=== PATIENT | female | born 1950 | race African-American/Black ===

== ENCOUNTER 2018-02-12 22:35 | Emergency (ER) | payer MEDICARE, OTHER ==
[~2018-02-12 22:35] MED LIST: ISOVUE-370 76%-LOCM 1 ML ONE
[2018-02-12 23:06] LABS: Bilirubin Negative (Negative); Blood, Urine Small (Negative); Clarity CLEAR (Clear); Glucose, Urine (Dipstick) 500 mg/dL (Negative); Leukocyte Negative (Negative); Nitrite Negative (Negative); Protein, Urine (Dipstick) 100 mg/dL (Neg-Trace); Specific Gravity, Urine 1.019 (1.002-1.036); pH, Urine 6.5 (5.0-9.0)
[2018-02-12 23:08] LABS: #Basophils 0.1 thou/uL (0.0-0.2); #Eosinphils 0.2 thou/uL (0.0-0.7); #Lymphocytes 4.4 thou/uL (1.20-3.40); #Monocytes 0.8 thou/uL (0.11-0.59); %Basophils 0.7 % (0.0-1.0); %Eosinophils 1.9 % (0.0-10.0); %Lymphocytes 38.1 % (21.0-51.0); %Monocytes 6.8 % (0.0-10.0); %Neutrophils 52.5 % (42.0-75.0); Hemoglobin 13.1 g/dL (12.0-16.0); Mean Corpuscular HGB CONC 33.6 g/dL (32.0-36.0); Mean Corpuscular Hemoglobin 28.2 pg (27.0-31.0); Mean Corpuscular Volume 83.9 fL (78.0-98.0); Mean Platelet Volume 7.9 fL (7.4-10.4); Platelet Count 255 thou/uL (130-400); RBC Distribution Width 12.8 % (11.5-14.5); Red Blood Cell (RBC) Count 4.64 mill/uL (4.20-5.40); White Blood Cell (WBC) Count 11.4 thou/uL (4.8-10.8)
[2018-02-12 23:08] LABS: Bacteria/HPF None Seen HPF (None Seen); Hyaline Casts/LPF 0-3 HYALINE CAST LPF (0-3 Hyaline); Pathc Cast-AUWi Flag 0.29 (0-2.49); Squamous Epithelial 0-3 HPF (0-3); WBC/HPF 0-3 HPF (0-3)
[2018-02-12 23:28] LABS: ALT (SGPT) 14 U/L (8-55); AST (SGOT) 12 U/L (5-34); Alkaline Phosphatase 110 U/L (40-150); Anion Gap 12 mmol/L (10-20); BUN (Urea Nitrogen) 14 mg/dL (9.8-20.1); Bilirubin, Total 0.3 mg/dL (0.2-1.2); Calc. Creatinine Clearance 0 mL/min (70-130); Calcium 9.2 mg/dL (7.8-10.44); Carbon Dioxide 26 mmol/L (23-31); Chloride 104 mmol/L (98-107); Estimated GFR-MDRD 83; Globulin 3.2 g/dL (2.4-3.5); Glucose 263 mg/dL (80-115); Lipase 33 U/L (8-78); Potassium 4.1 mmol/L (3.5-5.1); Protein, Total 7.2 g/dL (6.0-8.3); Sodium 138 mmol/L (136-145)
[2018-02-13 00:36] LABS: CKMB 2.2 ng/mL (0-6.6); Troponin I Less than 0.010 ng/mL (< 0.028)
[2018-02-13] MEDS ORDERED: Furosemide 40 MG/4 ML VIAL ONE (02:27)
--- NOTE | 2018-02-13 08:50 | CT ---
PRELIMINARY REPORT/[facility]/EMERGENTY AFTER-HOURS PROCEDURE CT Abdomen and Pelvis With Intravenous Contrast CLINICAL HISTORY: 67 years old, female; Pain; Abdominal pain; Generalized; Prior surgery; Surgery type: Er 2; Bloating for 2-3 weeks. HX of mass on stomach from previous hernia SX. Denies nausea. Belly swelling for 2 wee ks. No nausea. Red blood in bowels yesterday. Removed 7 polyups during colonoscopy serveral weeks ago. Feet swollen 2 weeks. Some SOB. Have not be taken meds because forget. Gallbladder removed . Hernia repair. TECHNIQUE: Axial computed tomography images of the abdomen and pelvis with intravenous contrast. Coronal reformatted images were created and reviewed. COMPARISON: No relevant prior studies available. FINDINGS: Lower thorax: No acute findings. ABDOMEN: Liver: Hepatic steatosis. Gallbladder and bile ducts: Prior cholecystectomy. Pancreas: Normal. No ductal dilation. Spleen: Normal. No splenomegaly. Adrenals: Normal. No mass. Kidneys and ureters: Left renal vascular calcifications. There is dilatation of the distal right uret er with obstructive urolithiasis or associated inflammation, potentially congenital. Kidneys otherwis e unremarkable. No obstructive uropathy. No perinephric inflammation. Stomach and bowel: No bowel wall thickening or intestinal obstruction. Appendix: Normal appendix. PELVIS: Bladder: Unremarkable as visualized. Reproductive: Unremarkable as visualized. ABDOMEN and PELVIS: Intraperitoneal space: Normal. No free air. No significant fluid collection. Bones/joints: No acute fracture. No dislocation. Soft tissues: Small supraumbilical fat containing abdominal wall hernia. Vasculature: Normal. No abdominal aortic aneurysm. Lymph nodes: Normal. No enlarged lymph nodes. IMPRESSION: No acute findings. Thank you for allowing us to participate in the care of your patient. Dictated and Authenticated by: Charly Butler MD 02/13/2018 2:11 AM Central Time ([place] & [place]) FINAL REPORT EMERGENT AFTER HOURS CT ABDOMEN AND PELVIS WITH CONTRAST: FINDINGS/IMPRESSION: I agree with the findings and impression given in the preliminary report per [facility] physician. 1. No evidence of acute intraabdominal/pelvic abnormality. 2. Right renal cyst.
== END 2018-02-13 03:20 | disposition home or self-care (01) ==
LOC: ERS 22:35
DX: R14.0 Abdominal distension (gaseous) (principal); I10 Essential (primary) hypertension; R60.0 Localized edema; E11.40 Type 2 diabetes mellitus with diabetic neuropathy, unspecified; F41.9 Anxiety disorder, unspecified; F32.9 Major depressive disorder, single episode, unspecified; Z87.891 Personal history of nicotine dependence; Z79.4 Long term (current) use of insulin; Z79.899 Other long term (current) drug therapy
CPT/HCPCS: 36415; 74177; 80053; 81003; 81015; 82553; 83690; 83880; 84484; 85025; 93005; 96374; J1940

== ENCOUNTER 2018-10-02 01:53 | Emergency (ER) | payer MEDICARE, OTHER ==
[2018-10-02 02:49] LABS: #Basophils 0.1 thou/uL (0.0-0.2); #Eosinphils 0.2 thou/uL (0.0-0.7); #Lymphocytes 3.4 thou/uL (1.20-3.40); #Monocytes 0.9 thou/uL (0.11-0.59); #Neutrophils 6.2 thou/uL (1.40-6.50); %Basophils 0.9 % (0.0-1.0); %Eosinophils 1.8 % (0.0-10.0); %Lymphocytes 31.2 % (21.0-51.0); %Monocytes 8.5 % (0.0-10.0); %Neutrophils 57.6 % (42.0-75.0); Hemoglobin 13.5 g/dL (12.0-16.0); Mean Corpuscular HGB CONC 31.8 g/dL (32.0-36.0); Mean Corpuscular Hemoglobin 27.4 pg (27.0-31.0); Mean Corpuscular Volume 86.2 fL (78.0-98.0); Mean Platelet Volume 8.9 fL (7.4-10.4); Platelet Count 216 thou/uL (130-400); RBC Distribution Width 11.9 % (11.5-14.5); Red Blood Cell (RBC) Count 4.93 mill/uL (4.20-5.40); White Blood Cell (WBC) Count 10.8 thou/uL (4.8-10.8)
[2018-10-02 03:21] LABS: Albumin 3.9 g/dL (3.4-4.8)
[2018-10-02 03:22] LABS: Chloride 101 mmol/L (98-107); Potassium 4.1 mmol/L (3.5-5.1); Sodium 138 mmol/L (136-145)
[2018-10-02 03:23] LABS: Calcium 9.7 mg/dL (7.8-10.44)
[2018-10-02 03:24] LABS: Globulin 2.7 g/dL (2.4-3.5); Glucose 362 mg/dL (80-115); Protein, Total 6.6 g/dL (6.0-8.3)
[2018-10-02 03:25] LABS: Anion Gap 12 mmol/L (10-20); Bilirubin, Total 0.3 mg/dL (0.2-1.2); Carbon Dioxide 29 mmol/L (23-31)
[2018-10-02 03:26] LABS: Alkaline Phosphatase 124 U/L (40-150)
[2018-10-02 03:27] LABS: Calc. Creatinine Clearance 0 mL/min (70-130); Estimated GFR-MDRD 69
[2018-10-02 03:28] LABS: BUN (Urea Nitrogen) 14 mg/dL (9.8-20.1)
[2018-10-02 03:29] LABS: AST (SGOT) 12 U/L (5-34)
[2018-10-02 03:30] LABS: ALT (SGPT) 10 U/L (8-55)
[2018-10-02] MEDS ORDERED: Ketorolac Tromethamine 30 MG/ML VIAL ONE (03:39)
--- NOTE | 2018-10-02 08:11 | RAD ---
RADIOGRAPH CHEST 2 VIEWS: HISTORY: A 68-year-old female with chest pain. FINDINGS: The thoracic aorta is tortuous and ectatic. There is no evidence of air space density, pneumothorax, or pulmonary edema. There is no cardiomegaly or pleural effusion. IMPRESSION: 1) No acute cardiopulmonary findings. 2) Ectasia of thoracic aorta. ying [] POS: DAINA
== END 2018-10-02 04:07 | disposition home or self-care (01) ==
LOC: ERS 01:53
DX: S39.012A Strain of muscle, fascia and tendon of lower back, initial encounter (principal); R07.9 Chest pain, unspecified; I10 Essential (primary) hypertension; E11.40 Type 2 diabetes mellitus with diabetic neuropathy, unspecified; F41.9 Anxiety disorder, unspecified; F32.9 Major depressive disorder, single episode, unspecified; Z86.73 Personal history of transient ischemic attack (TIA), and cerebral infarction without residual deficits; Z87.891 Personal history of nicotine dependence; X58.XXXA Exposure to other specified factors, initial encounter
CPT/HCPCS: 36415; 71046; 80053; 84484; 85025; 93005; 96372; J1885

== ENCOUNTER 2018-10-24 09:21 | Emergency (ER) | payer MEDICARE, OTHER ==
--- NOTE | 2018-10-24 10:08 | CT ---
FCT brain noncontrast: 10/24/2018 HISTORY: 68 year old female with dizziness and posttraumatic headache after fall. FINDINGS: There is no evidence of acute intra-axial or extra-axial hemorrhage. No mass effect, midline shift, o r extra-axial fluid collection. No evidence of obstructive hydrocephalus. Calvarium is intact. High-g rade chronic ischemic white matter changes of the cerebrum bilaterally. Calcifications of the globus pallidus bilaterally. No interval change compared to 09/17/2014. IMPRESSION: 1) No acute intracranial findings. 2) high-grade microvascular atherosclerosis chronic ischemic white matter changes.
--- NOTE | 2018-10-24 10:26 | RAD ---
FRadiograph chest and right ribs 3 views: 10/24/2018 HISTORY: 68-year-old female with traumatic right chest wall and rib pain after fall. FINDINGS: No displaced right rib fracture is identified. There is osteopenia diffusely. Severe DJD of right AC joint. Cardiac size near upper limits of normal. No pulmonary venous congestion, pulmonary edema, air space opacity, pneumothorax, or effacement of lateral costophrenic angles. Ectasia and tortuosity of thoracic aorta. IMPRESSION: 1. No right rib fracture identified. 2. Severe osteoarthrosis of the right acromioclavicular joint.
--- NOTE | 2018-10-24 10:55 | CT ---
CT CERVICAL SPINE WITHOUT CONTRAST: HISTORY: Pain. Status post fall. COMPARISON: 02/16/2010 FINDINGS: No craniocervical dissociation. The lateral masses of C1 and C2 articulate appropriately. Intact od ontoid process. No prevertebral soft tissue swelling. Soft tissue neck structures, upper mediastinum, and lung apice s are unremarkable. There is asymmetric fullness of the left lingual tonsils. There have been almos t nine years of stability. Varying degrees of central canal stenosis and foraminal narrowing on the basis of degenerative change . Limited evaluation by technique. No epidural hematoma. Straightening of normal cervical lordosis. There is degenerative disk disease with loss of disk spac e height and osteophyte formation at C5-C6 and C6-C7. Cervical spine vertebral body height is mainta ined. There is no fracture. IMPRESSION: 1. No cervical spine fracture. 2. Degenerative changes of the lower cervical spine. 3. Asymmetric fullness of the left lingual tonsil/left tongue base. Findings are unchanged from pre vious examination. POS: Jennifer
[2018-10-24 11:02] LABS: #Basophils 0.1 thou/uL (0.0-0.2); #Eosinphils 0.2 thou/uL (0.0-0.7); #Lymphocytes 2.8 thou/uL (1.20-3.40); #Monocytes 0.7 thou/uL (0.11-0.59); #Neutrophils 7.4 thou/uL (1.40-6.50); %Eosinophils 1.5 % (0.0-10.0); %Lymphocytes 24.9 % (21.0-51.0); %Monocytes 6.3 % (0.0-10.0); %Neutrophils 66.2 % (42.0-75.0); Hemoglobin 14.5 g/dL (12.0-16.0); Mean Corpuscular HGB CONC 32.2 g/dL (32.0-36.0); Mean Corpuscular Hemoglobin 27.3 pg (27.0-31.0); Mean Corpuscular Volume 84.8 fL (78.0-98.0); Mean Platelet Volume 9.1 fL (7.4-10.4); Platelet Count 226 thou/uL (130-400); RBC Distribution Width 12.1 % (11.5-14.5); Red Blood Cell (RBC) Count 5.31 mill/uL (4.20-5.40); White Blood Cell (WBC) Count 11.2 thou/uL (4.8-10.8)
[2018-10-24 11:10] LABS: PTT 37.9 SEC (22.9-36.1); Prothrombin Time 13.4 SEC (12.0-14.7)
[2018-10-24 11:16] LABS: Bilirubin Negative (Negative); Blood, Urine Small (Negative); Clarity CLOUDY (Clear); Glucose, Urine (Dipstick) >=1000 mg/dL (Negative); Leukocyte Small (Negative); Nitrite Negative (Negative); Protein, Urine (Dipstick) 300 mg/dL (Neg-Trace); Urobilinogen 0.2 mg/dL (0.2-1.0); pH, Urine 6.5 (5.0-9.0)
[2018-10-24 11:20] LABS: Hyaline Casts/LPF 4-6 HYALINE CAST LPF (0-3 Hyaline); Pathc Cast-AUWi Flag 1.22 (0-2.49)
[2018-10-24 11:23] LABS: Yeast-AUWi Flag 40.6 (0-25.0)
[2018-10-24 11:28] LABS: ALT (SGPT) 11 U/L (8-55); AST (SGOT) 11 U/L (5-34); Alkaline Phosphatase 136 U/L (40-150); Anion Gap 14 mmol/L (10-20); BUN (Urea Nitrogen) 11 mg/dL (9.8-20.1); Bilirubin, Total 0.6 mg/dL (0.2-1.2); Calc. Creatinine Clearance 0 mL/min (70-130); Calcium 9.7 mg/dL (7.8-10.44); Carbon Dioxide 27 mmol/L (23-31); Chloride 101 mmol/L (98-107); Estimated GFR-MDRD 81; Globulin 3.1 g/dL (2.4-3.5); Glucose 358 mg/dL (80-115); Potassium 4.2 mmol/L (3.5-5.1); Protein, Total 7.1 g/dL (6.0-8.3); Sodium 138 mmol/L (136-145)
[2018-10-24 11:30] LABS: Bacteria/HPF 2+ HPF (None Seen); Yeast-All Forms None Seen HPF (None Seen)
[2018-10-24] MEDS ORDERED: cloNIDine 0.1 MG TAB ONE (11:56)
[2018-10-24] MEDS ORDERED: Metoprolol Tartrate 5 MG/5 ML VIAL ONE (12:27)
== END 2018-10-24 15:07 | disposition home or self-care (01) ==
LOC: ERS 09:21
DX: R07.81 Pleurodynia (principal); R51 Headache; N39.0 Urinary tract infection, site not specified; F41.9 Anxiety disorder, unspecified; F32.9 Major depressive disorder, single episode, unspecified; Z86.73 Personal history of transient ischemic attack (TIA), and cerebral infarction without residual deficits; E11.9 Type 2 diabetes mellitus without complications; Z87.891 Personal history of nicotine dependence; Z79.891 Long term (current) use of opiate analgesic; Z79.899 Other long term (current) drug therapy; W01.0XXA Fall on same level from slipping, tripping and stumbling without subsequent striking against object, initial encounter
CPT/HCPCS: 36415; 70450; 72125; 80053; 81003; 81015; 82010; 84484; 85025; 85610; 85730; 87086; 93005; 94760; 96361; 96374

== ENCOUNTER 2019-01-19 15:20 | Observation (INO) | payer MEDICARE, OTHER ==
--- NOTE | 2019-01-19 15:40 | CT ---
Exam: CT brain PROVIDED CLINICAL HISTORY: Slurred speech COMPARISON: 10/24/2018 FINDINGS: The ventricular system is normal in size and morphology. No evidence for intracranial hemorrhage or mass effect. The extracranial soft tissues and osseous structures demonstrate an unremarkable CT appearance. Conspicuous chronic microvascular ischemic change involving the cerebral white matter red emonstrated. IMPRESSION: No evidence for intracranial hemorrhage or mass effect. Findings communicated to the referring clinic amaris 3:37 PM 01/19/2019.
[2019-01-19 15:54] LABS: #Basophils 0.1 thou/uL (0.0-0.2); #Eosinphils 0.3 thou/uL (0.0-0.7); #Lymphocytes 3.5 thou/uL (1.20-3.40); #Monocytes 0.6 thou/uL (0.11-0.59); #Neutrophils 7.2 thou/uL (1.40-6.50); %Eosinophils 2.2 % (0.0-10.0); %Lymphocytes 30.1 % (21.0-51.0); %Monocytes 5.2 % (0.0-10.0); %Neutrophils 61.6 % (42.0-75.0); Hemoglobin 13.3 g/dL (12.0-16.0); Mean Corpuscular HGB CONC 32.1 g/dL (32.0-36.0); Mean Corpuscular Hemoglobin 27.7 pg (27.0-31.0); Mean Corpuscular Volume 86.3 fL (78.0-98.0); Mean Platelet Volume 8.8 fL (7.4-10.4); Platelet Count 240 thou/uL (130-400); RBC Distribution Width 11.9 % (11.5-14.5); White Blood Cell (WBC) Count 11.6 thou/uL (4.8-10.8)
--- NOTE | 2019-01-19 16:00 | CT ---
EXAM: CTA Angio Head W WO Con PROVIDED CLINICAL HISTORY: Slurred speech COMPARISON: None FINDINGS: There is a normal three-vessel configuration of the great vessels at the arch. The common carotid, extracranial internal carotid, clavian and vertebral arteries demonstrate no evid ence for significant stenosis. Calcified stenoses are noted involving the cavernous portions of each internal carotid artery. There is no evidence for focal vessel stenosis, branch occlusion or aneurysm involving the intracrani al circulation. IMPRESSION: 1. No evidence for significant stenosis involving the great vessels of the neck. 2. No evidence for branch occlusion, focal vessel stenosis or aneurysm involving the [place] .
[2019-01-19 16:03] LABS: Prothrombin Time 13.7 SEC (12.0-14.7)
[2019-01-19 16:04] LABS: PTT 32.5 SEC (22.9-36.1)
[2019-01-19 16:11] LABS: ALT (SGPT) 10 U/L (8-55); AST (SGOT) 11 U/L (5-34); Albumin 3.9 g/dL (3.4-4.8); Alkaline Phosphatase 125 U/L (40-150); Anion Gap 15 mmol/L (10-20); BUN (Urea Nitrogen) 15 mg/dL (9.8-20.1); Bilirubin, Total 0.4 mg/dL (0.2-1.2); CK (CPK) 54 U/L (29-168); Calc. Creatinine Clearance 0 mL/min (70-130); Calcium 9.4 mg/dL (7.8-10.44); Carbon Dioxide 25 mmol/L (23-31); Chloride 101 mmol/L (98-107); Estimated GFR-MDRD 66; Globulin 3.1 g/dL (2.4-3.5); Glucose 455 mg/dL (80-115); Potassium 4.6 mmol/L (3.5-5.1); Sodium 136 mmol/L (136-145)
--- NOTE | 2019-01-19 16:16 | RAD ---
XR Chest 1 View Portable History: Weakness and slurred speech Comparison: Radiograph March 06, 2017 Findings: Lungs are clear. No pneumothorax or effusion. Cardiac silhouette and mediastinal contours a re within normal limits. Impression: No acute intrathoracic abnormality.
--- NOTE | 2019-01-19 16:30 | RAD ---
XR Knee Lt 3 View History: Pain Comparison: None. Findings: No acute fracture or malalignment. Moderate vascular calcifications. No significant joint e ffusion. Impression: No acute osseous abnormality.
--- NOTE | 2019-01-19 16:42 | PDOC.FPRHP ---
- History of Present Illness Chief Complaint: R-sided weakness History of Present Illness: 68 y/o F w/ PMHx of HTN, CAD s/p stent placement, and T2DM presents via EMS for eval of possible stroke after she stumbled while coming out of a store earlier today. Per EMS report noticed some r-sided weakness which had resolved by the time she was seen here in the ER. Pt w/ hx of HTN and notes she did not take her BP meds or insulin today. Currently denies any weakness/numbness. No LOC. No CP/SOB. Initial set of trop and other end organ function normal on lab work. 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 ED Course: Pt given TDAP and 1 L NS in the ER - Allergies/Adverse Reactions Allergies Allergy/AdvReac Type Severity Reaction Status Date / Time Latex, Natural Rubber Allergy Verified 09/18/14 22:03 Sulfa (Sulfonamide Allergy Verified 09/18/14 22:03 Antibiotics) - Home Medications Medication Instructions Recorded Confirmed Type Carvedilol [Coreg] 12.5 mg PO DAILY 09/17/14 09/17/14 History Gabapentin 300 mg PO TID 09/17/14 09/17/14 History Hydrochlorothiazide 12.5 mg PO DAILY 09/17/14 09/17/14 History Insulin Detemir 100 UNITS/ML 40 unit SC BID 09/17/14 09/17/14 History [Levemir] Lisinopril 2.5 mg PO DAILY 09/17/14 09/17/14 History Rosuvastatin [Crestor] 5 mg PO DAILY 09/17/14 09/17/14 History Amoxicillin 250 mg PO Q8HR #21 capsule 09/19/14 Rx Aspirin 325 mg PO DAILY #0 tab 09/19/14 Rx Fluticasone Propionate [Flonase 1 spray EA NARE DAILY 14 Days bot 09/19/14 Rx Allergy Relief] - History PMHx: PSHx: FHx: Social: - Review of Systems General: denies: fever/chills ENT: denies: nasal congestion Respiratory: denies: cough, shortness of breath Cardiovascular: denies: chest pain Gastrointestinal: denies: nausea, vomiting Musculoskeletal: denies: pain, tenderness Psychological: denies: anxiety - Vital signs BP: [] HR: [] RR: [] Tmax: [] Pox: []% on [] Wt: [] - Physical Exam Constitutional: NAD HEENT: normocephalic and atraumatic, PERRLA, EOMI Neck: supple, FROM Heart: RRR, normal S1/S2 Lungs: CTAB, no respiratory distress, good air movement Abdomen: soft, non-tender, bowel sounds present Musculoskeletal: normal structure Neurological: no focal deficit, CN II-XII intact, normal sensation, DTRs 2+ -Neurological: mild R-lower facial droop. Forehead spared. sensation intact throughout Skin: no rash/lesions Psychiatric: normal mood and affect FMR H&P: Results - Labs Result Diagrams: 01/19/19 15:42 01/19/19 15:42 Lab results: WBC 11.6 thou/uL (4.8-10.8) H 01/19/19 15:42 Hgb 13.3 g/dL (12.0-16.0) 01/19/19 15:42 Hct 41.5 % (36.0-47.0) 01/19/19 15:42 MCV 86.3 fL (78.0-98.0) 01/19/19 15:42 Plt Count 240 thou/uL (130-400) 01/19/19 15:42 Neutrophils % 61.6 % (42.0-75.0) 01/19/19 15:42 Sodium 136 mmol/L (136-145) 01/19/19 15:42 Potassium 4.6 mmol/L (3.5-5.1) 01/19/19 15:42 Chloride 101 mmol/L (98-107) 01/19/19 15:42 Carbon Dioxide 25 mmol/L (23-31) 01/19/19 15:42 BUN 15 mg/dL (9.8-20.1) 01/19/19 15:42 Creatinine 1.01 mg/dL (0.6-1.1) 01/19/19 15:42 Glucose 455 mg/dL (80-115) H 01/19/19 15:42 Calcium 9.4 mg/dL (7.8-10.44) 01/19/19 15:42 Total Bilirubin 0.4 mg/dL (0.2-1.2) 01/19/19 15:42 AST 11 U/L (5-34) 01/19/19 15:42 ALT 10 U/L (8-55) 01/19/19 15:42 Alkaline Phosphatase 125 U/L (40-150) 01/19/19 15:42 Creatine Kinase 54 U/L (29-168) 01/19/19 15:42 Serum Total Protein 7.0 g/dL (6.0-8.3) 01/19/19 15:42 Albumin 3.9 g/dL (3.4-4.8) 01/19/19 15:42 - EKG Interpretation EKG: non-specific ST-segment changes noted - Radiology Interpretation CT scan - head Status: report reviewed by me Additional comment: NAD Other Status: report reviewed by me Additional comment: CTA-Brain - NAD FMR H&P: A/P - Problem List (1) Transient ischemic attack (TIA) Current Visit: No Status: Suspected Assessment and Plan: TIA vs CVA w/ resolved deficits Will risk stratify w/ TSH, A1c, ECHO, FLP Plan for MRI in the AM CTA done in the ER w/o significant carotid stenosis Allow permissive HTN <220/120 w/ PRN IV available if needed Consult stroke team for PT/OT NPO pending swallow eval Cont. w/ ASA and high intensity statin (2) Hypertensive urgency Current Visit: Yes Status: Acute Code(s): I16.0 - HYPERTENSIVE URGENCY Assessment and Plan: Allow permissive HTN <220/120 as noted above 2/2 likely TIA Will plan to restart HTN medication tomorrow PRN IV's available (3) Diabetes Current Visit: Yes Status: Acute Code(s): E11.9 - TYPE 2 DIABETES MELLITUS WITHOUT COMPLICATIONS Assessment and Plan: Pt on 20 of lantus per our clinic records Will place on this with moderate sliding scale insulin Check A1c (4) CAD (coronary artery disease) Current Visit: Yes Status: Acute Code(s): I25.10 - ATHSCL HEART DISEASE OF [place] CORONARY ARTERY W/O ANG PCTRS Assessment and Plan: Cont. w/ ASA and statin Trop negative Monitor on telemetry (5) Depression Current Visit: Yes Status: Acute Code(s): F32.9 - MAJOR DEPRESSIVE DISORDER , SINGLE EPISODE, UNSPECIFIED Assessment and Plan: Cont. w/ wellbutrin FMR H&P: Upper Level - Plan Pt seen and examined w/ attending physician Dr. Rayo in the ER. Plan discussed w/ Dr. Rayo who is in agreement. Addendum - Attending - Attending Attestation Date/Time: 01/19/19 1487 I personally evaluated the patient and discussed the management with Dr. Huertas I agree with the History, Examination, Assessment and Plan documented above with any addition or exceptions noted below.
[2019-01-19] MEDS ORDERED: Amlodipine 5 MG TAB ONE (16:45)
[2019-01-19] MEDS ORDERED: Adacel (T-DAP) 0.5 ML SYRINGE ONE (16:45)
[2019-01-19] MEDS ORDERED: Carvedilol 25 MG TAB PO SCH (17:00)
[2019-01-19] MEDS ORDERED: Labetalol HCl 100 MG/20 ML VIAL SLOW IVP PRN ×2 (17:34→18:59)
[2019-01-19] MEDS ORDERED: Dextrose 5% in Water 1,000 ML IV PRN (17:34)
[2019-01-19] MEDS ORDERED: Acetaminophen 325 MG TAB PO PRN (17:34)
[2019-01-19] MEDS ORDERED: Ondansetron ODT 4 MG TAB PO PRN (17:34)
[2019-01-19] MEDS ORDERED: Dextrose 50% Abboject 50 ML SYRINGE SLOW IVP PRN (17:34)
[2019-01-19 17:55] LABS: Hemoglobin A1c 13.9 % (4.0-6.0)
[2019-01-19] MEDS ORDERED: Insulin Glargine 20 UNITS in Pre-Filled Syringe 1 EACH SC SCH (18:00)
[2019-01-19] MEDS ORDERED: Aspirin 325 mg Enteric Coated Tablet PO SCH (21:30)
[2019-01-19] MEDS: HumaLOG 300 UNITS/3 ML VIAL SC PRN (22:52)
[2019-01-19 23:43] VITALS: BMI 23.6
[2019-01-20] MEDS: HumaLOG 300 UNITS/3 ML VIAL SC PRN ×4 (05:59→21:23)
[2019-01-20 06:01] LABS: #Basophils 0.1 thou/uL (0.0-0.2); #Eosinphils 0.2 thou/uL (0.0-0.7); #Lymphocytes 4.4 thou/uL (1.20-3.40); #Monocytes 0.7 thou/uL (0.11-0.59); #Neutrophils 5.8 thou/uL (1.40-6.50); %Basophils 0.5 % (0.0-1.0); %Eosinophils 2.2 % (0.0-10.0); %Lymphocytes 39.3 % (21.0-51.0); %Monocytes 5.9 % (0.0-10.0); %Neutrophils 52.1 % (42.0-75.0); Hemoglobin 11.7 g/dL (12.0-16.0); Mean Corpuscular HGB CONC 32.4 g/dL (32.0-36.0); Mean Corpuscular Hemoglobin 27.9 pg (27.0-31.0); Mean Corpuscular Volume 86.2 fL (78.0-98.0); Mean Platelet Volume 8.7 fL (7.4-10.4); Platelet Count 218 thou/uL (130-400); RBC Distribution Width 11.9 % (11.5-14.5); Red Blood Cell (RBC) Count 4.19 mill/uL (4.20-5.40); White Blood Cell (WBC) Count 11.2 thou/uL (4.8-10.8)
[2019-01-20 06:24] LABS: Anion Gap 13 mmol/L (10-20); BUN (Urea Nitrogen) 18 mg/dL (9.8-20.1); Calc. Creatinine Clearance 70 mL/min (70-130); Calcium 9.4 mg/dL (7.8-10.44); Carbon Dioxide 25 mmol/L (23-31); Cardiac Risk 3.2 (Less than 4.5); Chloride 105 mmol/L (98-107); Cholesterol 99 mg/dl (< 200 Desired); Estimated GFR-MDRD 88; Glucose 332 mg/dL (80-115); HDL Cholesterol 31 mg/dL (>60 Neg Risk); LDL Cholesterol, Calculated 53 mg/dL; Potassium 4.1 mmol/L (3.5-5.1); Sodium 139 mmol/L (136-145); Triglycerides 76 mg/dL (Less than 150)
--- NOTE | 2019-01-20 08:21 | PDOC.FM ---
- Subjective Subjective: 68 yr old female with uncontrolled DM here for bells palsy vs TIA/CVA. She reports feeling very weak this morning due to not sleeping. Reports falling a lot over the last 2 years and is apparently getting PT started for this. She reports not really taking her lantus at home because it is in vials instead of pens. During review of her clinic chart, she was sent out on pens, not vials. She does not have a sliding scale prescribed from our clinic however she states she is using a sliding scale at home. - Objective MAR Reviewed: Yes Vital Signs & Weight: Vital Signs (12 hours) Temp Pulse Resp BP Pulse Ox 01/20/19 04:00 97.9 F 79 18 187/88 H 98 01/20/19 00:00 98.1 F 80 16 148/74 H 96 01/19/19 20:20 98.2 F 86 16 200/92 H 97 Weight Weight 64.524 kg I&O: 01/19/19 01/20/19 01/21/19 06:59 06:59 06:59 Intake Total 240 Balance 240 Result Diagrams: 01/20/19 05:11 01/20/19 05:11 Phys Exam - Physical Examination Constitutional: NAD HEENT: moist MMs Respiratory: no wheezing, no rales, no rhonchi, clear to auscultation bilateral Cardiovascular: RRR, no significant murmur Gastrointestinal: soft, non-tender, positive bowel sounds Musculoskeletal: no edema Neurological: moves all 4 limbs right sided facial deficits only manifest by inability to close eyelid. otherwise CN 2-12 intact. BUE/BLE 5/5 strength, sensation intact Deviation from normal: patient seems easily confused about her medications and disease process Skin: cap refill <2 seconds Dx/Plan (1) Transient ischemic attack (TIA) Status: Suspected Plan: EMS reported symptoms have resolved this morning. She does have some residual bells palsy symptoms, although not severe FLP is good and she can cont atorvastatin 40 mg ECHO pending MRI brain pending. CTA neck complete in ER- no significant stenosis in great vessels of neck. (2) Hypertension Code(s): I10 - ESSENTIAL (PRIMARY) HYPERTENSION Status: Chronic Plan: -severe elevated BP -allowing for submissive hypertension right now until 24 post TIA symptoms. -then restart home meds -will obtain renal US for hypertensive urgency on presentation (3) CAD (coronary artery disease) Code(s): I25.10 - ATHSCL HEART DISEASE OF [place] CORONARY ARTERY W/O ANG PCTRS Status: Acute (4) Diabetes Code(s): E11.9 - TYPE 2 DIABETES MELLITUS WITHOUT COMPLICATIONS Status: Acute Qualifiers: Diabetes mellitus type: type 2 Diabetes mellitus custodial insulin use: unspecified custodial insulin use status Diabetes mellitus complication status : with neurologic complications Plan: severe uncontrolled DM on insulin -will do some education on insulin administration -A1C at least improved from > 15 to 13.9 -titrate insulin by 4 units today and cont sliding scale. adjust lantus as tolerated to FBG < 140. -consider home health to assist with medications (5) Depression Code(s): F32.9 - MAJOR DEPRESSIVE DISORDER, SINGLE EPISODE, UNSPECIFIED Status : Acute Plan: cont home meds - Plan Plan: this patient would likely benefit from home health for medication administration and diabetes education. Suspect bells palsy is 2/2 diabetes,uncontrolled. pending CVA workup Will monitor overnight to ensure BP is controlled prior to DC and titrate insulin Addendum - Attending - Attending Attestation Date/Time: 01/20/19 0478 I personally evaluated the patient and discussed the management with Dr. Garza I agree with the History, Examination, Assessment and Plan documented above with any addition or exceptions noted below.Permissive HTN for now and consider renal US if none recently obtained.
[2019-01-20] MEDS ORDERED: Insulin Glargine 26 UNITS in Pre-Filled Syringe 1 EACH SC SCH (09:00)
[2019-01-20] MEDS ORDERED: Insulin Glargine 20 UNITS in Pre-Filled Syringe 1 EACH SC SCH (09:00)
[2019-01-20] MEDS ORDERED: Insulin Glargine 24 UNITS in Pre-Filled Syringe 1 EACH SC SCH (09:00)
[2019-01-20] MEDS: Bupropion 150 MG XL TAB PO SCH (09:16)
[2019-01-20] MEDS: Aspirin 81 mg Enteric Coated Tablet PO SCH (09:16)
--- NOTE | 2019-01-20 12:46 | MRI ---
EXAM: MRI Brain WO Con PROVIDED CLINICAL HISTORY: TIA COMPARISON: CT brain 01/19/2019 FINDINGS: The ventricular system is normal in size and morphology. There is no evidence for intracranial hemorr roderick or mass effect. There is no evidence for restricted diffusion to suggest recent infarction. Prominent and fluid and patchy FLAIR and T2 hyperintensity involves the periventricular white matter, most compatible with chronic microvascular ischemic change. Appropriate flow voids are seen within the regional major vessels. The extracranial soft tissues and calvarial marrow signal appear normal. IMPRESSION: No evidence for an acute intracranial abnormality.
[2019-01-20] MEDS: Pregabalin 50 MG CAP PO SCH ×2 (16:08→21:22)
[2019-01-20] MEDS ORDERED: hydrALAZINE 20 MG/ML VIAL SLOW IVP PRN (17:45)
[2019-01-20] MEDS ORDERED: Insulin Glargine 28 UNITS in Pre-Filled Syringe 1 EACH SC SCH (18:37)
[2019-01-20] MEDS ORDERED: Atorvastatin Calcium 40 MG TAB PO SCH (21:00)
[2019-01-20] MEDS: Famotidine 20 MG TAB PO SCH (21:21)
[2019-01-20] MEDS: Lisinopril 20 MG TAB PO SCH (21:21)
[2019-01-20] MEDS: Carvedilol 25 MG TAB PO SCH (21:21)
--- NOTE | 2019-01-21 06:17 | PDOC.FM ---
- Subjective Subjective: NAEO. Patient resting comfortably in bed. Patient reports feeling well - an today. She states she feels rested. She was walking around the hospital yesterday with PT with only some issues stating that her knees dirk slightly. She is worried about getting her sugars under control. She reports taking 40units at home of insulin. - Objective MAR Reviewed: Yes Vital Signs & Weight: Vital Signs (12 hours) Temp Pulse Resp BP BP Pulse Ox 01/21/19 00:00 98.7 F 78 16 145/80 H 97 01/20/19 21:21 158/77 H 01/20/19 20:00 98.3 F 79 16 158/77 H 95 01/20/19 18:21 178/87 H Weight Weight 64.524 kg I&O: 01/19/19 01/20/19 01/21/19 06:59 06:59 06:59 Intake Total 240 900 Balance 240 900 Result Diagrams: 01/20/19 05:11 01/20/19 05:11 Phys Exam - Physical Examination Constitutional: NAD HEENT: PERRLA, moist MMs, sclera anicteric Neck: supple, full ROM Respiratory: clear to auscultation bilateral Cardiovascular: RRR Gastrointestinal: soft, non-tender, no distention Musculoskeletal: pulses present Neurological: non-focal, moves all 4 limbs no facial droop, unable to blink right eye Psychiatric: normal affect Skin: no rash, normal turgor, cap refill <2 seconds Dx/Plan (1) CAD (coronary artery disease) Code(s): I25.10 - ATHSCL HEART DISEASE OF [place] CORONARY ARTERY W/O ANG PCTRS Status: Acute (2) Depression Code(s): F32.9 - MAJOR DEPRESSIVE DISORDER, SINGLE EPISODE, UNSPECIFIED Status : Acute (3) Diabetes Code(s): E11.9 - TYPE 2 DIABETES MELLITUS WITHOUT COMPLICATIONS Status: Acute Qualifiers: Diabetes mellitus type: type 2 Diabetes mellitus residential insulin use: unspecified residential insulin use status Diabetes mellitus complication status : with neurologic complications (4) Hypertensive urgency Code(s): I16.0 - HYPERTENSIVE URGENCY Status: Acute (5) Hypertension Code(s): I10 - ESSENTIAL (PRIMARY) HYPERTENSION Status: Chronic (6) Transient ischemic attack (TIA) Status: Suspected - Plan Plan: TIA vs Fenton's Palsy Pt presenting after fall and reported facial droop by EMS. Recent dx of Fenton's Palsy. - CT head and CTA neg - MRI nml - Echo: EF 50-55%, diastolic dysfunction, LVH - FLP nml; ASCVD risk 17% - continue atorvastatin 40mg HTN - permissive HTN allowed for initial 24 hrs - Restarted home meds - Renal US neg for [place] CAD - aware, continue home meds DMII - Severely uncontrolled DM on insulin - Will need education on insulin administration - A1C 13.9 - Continue to adjust lantus as necessary - CM consulted to evaluate HH for med management Depression - continue home meds Code: FULL Dispo: dc 1-2 days pending CM and glucose control Addendum - Attending - Attending Attestation Date/Time: 01/21/19 6515 I personally evaluated the patient and discussed the management with Dr. Head. I agree with the History, Examination, Assessment and Plan documented above with any addition or exceptions noted below. Adjusting lantus for better blood sugar control. Pt has worked with therapy. Will try to get home health with PT set up. Possible d/c this afternoon.
[2019-01-21] MEDS: HumaLOG 300 UNITS/3 ML VIAL SC PRN ×3 (06:35→17:05)
--- NOTE | 2019-01-21 07:46 | ULT ---
Exam: Bilateral renal ultrasound complete: HISTORY: Hypertensive urgency COMPARISON: None FINDINGS: Right kidney: 10.7 x 6 x 4.9 cm Left kidney: 10.7 x 6.1 x 5.2 cm No renal hydronephrosis. No evidence for abnormal perinephric process. 2 small right renal cysts up to 2.2 cm in the upper pole of the right kidney. Unremarkable appearing bladder. IMPRESSION: No renal hydronephrosis. Small renal cysts on the right.
[2019-01-21] MEDS ORDERED: Amlodipine 10 MG TAB PO SCH (09:00)
[2019-01-21] MEDS ORDERED: Polyethylene Glycol OPTH DROP 15 ML BOT EA EYE SCH (09:00)
[2019-01-21] MEDS ORDERED: Insulin Glargine 32 UNITS in Pre-Filled Syringe 1 EACH SC SCH (09:00)
[2019-01-21] MEDS ORDERED: Lisinopril 20 MG TAB PO SCH (09:00)
[2019-01-21] MEDS: Carvedilol 25 MG TAB PO SCH (09:57)
[2019-01-21] MEDS: Aspirin 81 mg Enteric Coated Tablet PO SCH (09:57)
[2019-01-21] MEDS: Famotidine 20 MG TAB PO SCH (09:57)
[2019-01-21] MEDS: Bupropion 150 MG XL TAB PO SCH (09:57)
[2019-01-21] MEDS: Pregabalin 50 MG CAP PO SCH ×2 (09:59→15:57)
[2019-01-21] MEDS: Lisinopril 20 MG TAB PO SCH (10:04)
--- NOTE | 2019-01-21 14:24 | PDOC.EVN ---
Event Note - Event Note Event Note: S: Ms Galvan is feeling well today. 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 She is up to 40U of Lantus at home and has been keeping a blood glucose log. She reports being diagnosed with [place] palsy by her solar electric practitioner years ago. Denies any current focal weakness or change in mental status. O: Vital signs and reviewed. General: No acute distress, alert and oriented Neck: Supple, trachea midline CV: RRR, no murmurs, no edema Pulm: CTA bilaterally, no respiratory distress Neuro: Mild right sided [place] palsy - affecting forehead and lower face. otherwise CN intact. Wrist community outreach advocate 5/5, planter/dorsiflexion 5/5 A&P: Acute CVA workup has been negative. Denies focal weakness, no AMS. Facial droop 2/2 Fenton's Palsy Pts DM is uncontrolled. No showed last appt, stressed importance of follow up to titrate insulin. Will resume pts Metformin here in the hospital. She will likely discharge later today. Kiana Robert MD PGY-1
[2019-01-21 16:09] VITALS: BP 153/75; TEMP 98.5
--- NOTE | 2019-01-22 03:11 | DIS ---
DATE OF ADMISSION: 01/19/2019 DATE OF DISCHARGE: 01/21/2019 RESIDENT: Li Head MD ADMITTING ATTENDING: George Rayo MD DISCHARGE ATTENDING: Lexie Montoya MD CONSULTS: Case Management, Speech, and Stroke team. PROCEDURES: 1. CT brain, no evidence for intracranial hemorrhage or mass effect. 2. CTA head showing no evidence for stenosis of the great vessels of neck and no evidence of branch occlusion, focal vessel stenosis or aneurysm involving the [place]. 3. Renal ultrasound showing no renal hydronephrosis, small renal cyst on the right. 4. Brain MRI showing no evidence for acute intracranial abnormality. 5. Echocardiogram showing ejection fraction of 50% to 55%, mild concentric left ventricular hypertrophy, diastolic dysfunction. 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 SECONDARY DIAGNOSES: Hypertension, coronary artery disease, diabetes type 2, and depression. DISCHARGE MEDICATIONS: 1. Test strips - 1 each four times daily 2. Lantus 32 units subq qAM 3. Lancets - 1 each as directed 4. Lisinopril 30mg twice daily 5. Coreg 25mg oral twice daily 6. Lyrica 50mg three times daily 7. Atorvastatin 40mg qHS 8. Ranitidine 150mg oral twice daily 9. Metform 1000mg oral every morning 10. Norvasc 10mg oral daily 11. Wellbutrin 150mg oral twice daily 12. ASA 81mg oral daily 13. Propylene Glycol 1 drop each eye daily DISCONTINUED MEDICATIONS: 1. Lisinopril 20mg oral twice daily 2. Lantus 20 u subq daily HISTORY OF PRESENT ILLNESS/HOSPITAL COURSE: This is a 68 y/o F w/ PMHx of HTN, CAD s/p stent placement, and T2DM presents via EMS for eval of possible stroke after she stumbled while coming out of a store earlier today. Per EMS report noticed some right sided weakness which had resolved by the time she was seen in the ER. Patient reported not taking her BP medications or insulin. 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 The patient was given 1L NS in the ER. She was admitted to the stroke unit for further work up. The patient had a CT brain, CTA, and MRI that were negative for any bleed or acute stroke. Permissive HTN allowed for initial 24 hrs. Patient restarted on home meds for HTN. Renal US performed to further evaluate HTN, no evidence of renal artery stenosis. Patient's echo showed a LVEF of 50-55%, LVH and diastolic dysfunction. Her FLP nml. ASCVD risk of 17%. Patient on high intensity statin. Patient had an A1C of 13.9. Her insulin was adjusted during her stay to control her sugars. She will need close outpatient follow up to adjust medication. DISPOSITION: Stable. DISCHARGE INSTRUCTIONS: 1. Location: Home with Home Health. 2. Diet: Consistent carbohydrate 1800 kilocalories a day. 3. Activity: Ad loreta with fall precautions and going home with Home Health, PT. 4. Followup: Follow up with Dr. Oxana Garcia on , keep regularly scheduled visits with other specialists. Job ID: [id number] [facility]
[2019-01-22] MEDS ORDERED: metFORMIN 500 MG TAB PO SCH (08:00)
== END 2019-01-21 18:15 | disposition home health service (06) ==
LOC: ERS 15:20 → ERHOLD 16:44 → 2SE 20:18
PROVIDERS: ADMIT Family Medicine; ATTEND Family Medicine
DX: R53.1 Weakness (principal); R47.81 Slurred speech; I25.10 Atherosclerotic heart disease of native coronary artery without angina pectoris; I10 Essential (primary) hypertension; G51.0 Bell's palsy; I16.0 Hypertensive urgency; F32.9 Major depressive disorder, single episode, unspecified; N28.1 Cyst of kidney, acquired; E11.65 Type 2 diabetes mellitus with hyperglycemia; S80.02XA Contusion of left knee, initial encounter; Z86.73 Personal history of transient ischemic attack (TIA), and cerebral infarction without residual deficits; Z87.891 Personal history of nicotine dependence; Z79.4 Long term (current) use of insulin; Z79.82 Long term (current) use of aspirin; Z79.899 Other long term (current) drug therapy; Z88.2 Allergy status to sulfonamides; Z91.040 Latex allergy status; Z95.5 Presence of coronary angioplasty implant and graft; W01.0XXA Fall on same level from slipping, tripping and stumbling without subsequent striking against object, initial encounter
CPT/HCPCS: 70450; 70496; 70498; 70551; 71045; 73562; 76770; 80048; 80061; 82550; 82962 ×3; 83036; 84484; 85025; 85610; 85730; 86850; 86900; 86901; 90471; 90715; 93005; 93306; 96360; 97116 ×2; 97139 ×3; 99285; G0378 ×2; 36415; 36416; 80053; 84443; J1815; Q9966

== ENCOUNTER 2019-02-24 09:01 | Observation (INO) | payer MEDICARE, OTHER ==
[2019-02-24 09:46] LABS: #Basophils 0.1 thou/uL (0.0-0.2); #Eosinphils 0.3 thou/uL (0.0-0.7); #Lymphocytes 4.4 thou/uL (1.20-3.40); #Monocytes 0.7 thou/uL (0.11-0.59); #Neutrophils 5.6 thou/uL (1.40-6.50); %Basophils 0.7 % (0.0-1.0); %Eosinophils 2.5 % (0.0-10.0); %Lymphocytes 39.8 % (21.0-51.0); %Monocytes 6.5 % (0.0-10.0); %Neutrophils 50.5 % (42.0-75.0); Hemoglobin 12.9 g/dL (12.0-16.0); Mean Corpuscular HGB CONC 32.3 g/dL (32.0-36.0); Mean Corpuscular Hemoglobin 27.6 pg (27.0-31.0); Mean Corpuscular Volume 85.6 fL (78.0-98.0); Mean Platelet Volume 8.8 fL (7.4-10.4); Platelet Count 211 thou/uL (130-400); RBC Distribution Width 12.4 % (11.5-14.5); Red Blood Cell (RBC) Count 4.67 mill/uL (4.20-5.40)
[2019-02-24 09:51] LABS: INR-International Normal Ratio 1.1; PTT 40.5 SEC (22.9-36.1); Prothrombin Time 13.7 SEC (12.0-14.7)
--- NOTE | 2019-02-24 09:59 | CT ---
CT BRAIN WITHOUT CONTRAST: Date: 02/24/19 HISTORY: Left-sided weakness. Level I stroke. COMPARISON: 01/19/19. FINDINGS: No evidence of infarct, hemorrhage, midline shift, or abnormal extra-axial fluid collections are seen . The ventricular size is stable and the basilar cisterns are patent. Bilateral basal ganglia calcifi cations are redemonstrated. The bony calvarium is intact. The visualized paranasal sinuses and mastoi d air cells are well aerated. IMPRESSION: No CT evidence of acute intracranial process. Discussed over the telephone with Dr. Javan Amador of the emergency room at 0936 hours. CODE CR. POS: DAINA
[2019-02-24] MEDS ORDERED: hydrALAZINE 20 MG/ML VIAL ONE (10:05)
[2019-02-24] MEDS ORDERED: Aspirin Chewable 81 MG TAB ONE (10:05)
[2019-02-24 10:12] LABS: ALT (SGPT) 10 U/L (8-55); AST (SGOT) 7 U/L (5-34); Albumin 3.9 g/dL (3.4-4.8); Alkaline Phosphatase 111 U/L (40-150); Anion Gap 15 mmol/L (10-20); BUN (Urea Nitrogen) 15 mg/dL (9.8-20.1); Bilirubin, Total 0.3 mg/dL (0.2-1.2); Calc. Creatinine Clearance 0 mL/min (70-130); Calcium 9.9 mg/dL (7.8-10.44); Carbon Dioxide 25 mmol/L (23-31); Chloride 102 mmol/L (98-107); Estimated GFR-MDRD 68; Globulin 3.3 g/dL (2.4-3.5); Glucose 345 mg/dL (80-115); Potassium 4.7 mmol/L (3.5-5.1); Protein, Total 7.2 g/dL (6.0-8.3); Sodium 137 mmol/L (136-145)
--- NOTE | 2019-02-24 10:57 | CT ---
CTA HEAD WITH IV CONTRAST AND 3D POSTPROCESSING CTA NECK WITH IV CONTRAST AND 3D POSTPROCESSING: Date: 02/24/19 HISTORY: Left-sided weakness. COMPARISON: 01/19/19. FINDINGS: Calcified plaque is again seen at the carotid bulbs (left greater than right) and involving the marie nous portions of both internal carotid arteries. Stenotic changes in the cavernous portions of each i nternal carotid artery is again seen. There is mild (about 30%) stenosis involving the left proximal ICA. No major branch occlusion, aneurysm, or significant stenosis of the major branches is seen. The vertebrobasilar artery systems demonstrate good flow without significant stenosis. A dominant lef t vertebral artery is present. There is a normal 3 vessel configuration of the great vessels at the arch. IMPRESSION: Stable exam. Discussed over the telephone with ER physician, Dr. Javan Amador, at 0951 hours. CODE CR. POS: DAINA
[2019-02-24] MEDS ORDERED: ISOVUE-370 76%-LOCM 1 ML ONE (12:00)
[2019-02-24 12:46] LABS: Troponin I Less than 0.010 ng/mL (< 0.028)
[2019-02-24] MEDS ORDERED: Ondansetron PF 4 MG/2 ML Vial IVP PRN (12:59)
[2019-02-24] MEDS ORDERED: Ondansetron ODT 4 MG TAB SL PRN (12:59)
[2019-02-24 13:41] VITALS: BMI 22.8
--- NOTE | 2019-02-24 13:43 | PDOC.FPRHP ---
- History of Present Illness Chief Complaint: left-sided weakness History of Present Illness: Patient reports that she used the bathroom, reports her legs started trembling which she says is a sign that her leg is "going to act up." She reports that this happens frequently, but this morning it wouldn't stop trembling. She then went down to her knees so she could crawl to the front door to unlock it, then she crawled to her bedroom to call 911. Denies LOC, denies hitting her head. She is having trouble remembering details. Denies dizzines, cp, sob. Endorses a headache that is right-sided across her forehead. Endorses that she has been having difficulty swallowing since last monday, and has had difficulty with her speech today. Usually takes insulin in the morning, but has not had any of her normal home meds today. She endorses abdominal pain and bloating that began when she was in ED. She has a previous history of falling because her legs give out from under her, but at those times she states her legs weren't trembling. She also has a history of white's palsy on the right. She usually uses a walker or a cane. ED Course: ASA 224mg Hydralazine 20mg - Allergies/Adverse Reactions Allergies Allergy/AdvReac Type Severity Reaction Status Date / Time Latex, Natural Rubber Allergy Verified 02/24/19 18:14 Sulfa (Sulfonamide Allergy Anaphylaxis Verified 02/24/19 18:14 Antibiotics) - Home Medications Medication Instructions Recorded Confirmed Type Carvedilol [Coreg] 25 mg PO BID 09/17/14 01/19/19 History Amlodipine [Norvasc] 10 mg PO DAILY 01/19/19 01/19/19 History Aspirin 81 mg PO DAILY 01/19/19 01/19/19 History Atorvastatin Calcium 40 mg PO HS 01/19/19 01/19/19 History Pregabalin [Lyrica] 50 mg PO TID 01/19/19 01/19/19 History Ranitidine HCl 150 mg PO BID 01/19/19 01/19/19 History buPROPion [Wellbutrin] 150 mg PO BID 01/19/19 01/19/19 History metFORMIN [Glucophage] 1,000 mg PO QAM-WM 01/19/19 01/19/19 History Propylene Glycol [Systane Complete] 1 drop EA EYE DAILY 01/20/19 01/20/19 History Blood Sugar Diagnostic [Test 1 each QID #100 strip 01/21/19 Rx Strips] Insulin Glargine,Hum.Rec.Anlog 32 unit WA QAM #1 box 01/21/19 Rx [Lantus Solostar] Lancets [Onetouch Lancets] 1 each ASDIR #60 each 01/21/19 Rx Lisinopril [Zestril] 30 mg PO BID #60 tab 01/21/19 Rx - History PMHx: ID ([id number]), DMII, HTN, TIA, right-sided white's palsy, spinal stenosis PSHx: 4 cardiac stents, stent in leg. She goes 1/x per month for injections in her eyes. FHx: Father had 2 brain aneurysms. Two brothers have brain aneurysms, one from his aneurysm. Social: Denies etoh, denies drugs, endorses remote history of smoking, quit 4 years ago - Review of Systems General: denies: fever/chills, night sweats Eyes: reports: vision changes ENT: denies: nasal congestion Respiratory: denies: shortness of breath Cardiovascular: denies: chest pain Gastrointestinal: reports: diarrhea, abdominal pain, other (GI incontinence for the last 2 weeks). denies: nausea, vomiting Genitourinary: denies: dysuria, discharge Skin: denies: rashes, jaundice Musculoskeletal: denies: tenderness, swelling Neurological: reports: weakness Psychological: reports: anxiety - Vital signs BP: [161/86] HR: [82] RR: [16] Tmax: [98.2] Pox: [98]% on [RA] - Physical Exam Constitutional: NAD -Constitutional: oriented x4 but poor recent memory HEENT: normocephalic and atraumatic, PERRLA, EOMI, grossly normal vision, grossly normal hearing, MMM Neck: supple, trachea midline Chest: no-tender to palpation, no lesions Heart: RRR, normal S1/S2, no murmurs/rubs/gallops, pulses present, no edema Lungs: CTAB, no respiratory distress, good air movement Abdomen: soft, non-tender, bowel sounds present -Abdomen: mildly distended, small midline hernia that is reducible. Musculoskeletal: normal tone -Neurological: decreased sensation of the L face, L CN7 deficit, tongue deviation to the L, ataxic limbs in finger to nose b/l, unable to perform dysdiadokinesia of b/l UE , decreased sensation of the LLE, strength 2/5 LLE, 3/5 RLE, 5/5 b/l UE. Negative Rhomberg. Skin: no rash/lesions, good turgor, capillary refill <2 seconds Heme/Lymphatic: no unusual bruising or bleeding -Psychiatric: depressed mood FMR H&P: Results - Labs Result Diagrams: 02/24/19 09:26 02/24/19 09:26 Lab results: WBC 11.0 thou/uL (4.8-10.8) H 02/24/19 09:26 Hgb 12.9 g/dL (12.0-16.0) 02/24/19 09:26 Hct 39.9 % (36.0-47.0) 02/24/19 09:26 MCV 85.6 fL (78.0-98.0) 02/24/19 09:26 Plt Count 211 thou/uL (130-400) 02/24/19 09:26 Neutrophils % 50.5 % (42.0-75.0) 02/24/19 09:26 Sodium 137 mmol/L (136-145) 02/24/19 09:26 Potassium 4.7 mmol/L (3.5-5.1) 02/24/19 09:26 Chloride 102 mmol/L (98-107) 02/24/19 09:26 Carbon Dioxide 25 mmol/L (23-31) 02/24/19 09:26 BUN 15 mg/dL (9.8-20.1) 02/24/19 09:26 Creatinine 0.99 mg/dL (0.6-1.1) 02/24/19 09:26 Glucose 345 mg/dL (80-115) H 02/24/19 09:26 Calcium 9.9 mg/dL (7.8-10.44) 02/24/19 09:26 Total Bilirubin 0.3 mg/dL (0.2-1.2) 02/24/19 09:26 AST 7 U/L (5-34) 02/24/19 09:26 ALT 10 U/L (8-55) 02/24/19 09:26 Alkaline Phosphatase 111 U/L (40-150) 02/24/19 09:26 Serum Total Protein 7.2 g/dL (6.0-8.3) 02/24/19 09:26 Albumin 3.9 g/dL (3.4-4.8) 02/24/19 09:26 FMR H&P: A/P - Problem List (1) Weakness Current Visit: Yes Status: Acute Code(s): R53.1 - WEAKNESS (2) CAD (coronary artery disease) Current Visit: No Status: Acute Code(s): I25.10 - ATHSCL HEART DISEASE OF [place] CORONARY ARTERY W/O ANG PCTRS (3) Diabetes Current Visit: No Status: Acute Code(s): E11.9 - TYPE 2 DIABETES MELLITUS WITHOUT COMPLICATIONS Qualifiers: Diabetes mellitus type: type 2 Diabetes mellitus half-way insulin use: unspecified terminal supervisor insulin use status Diabetes mellitus complication status : with neurologic complications (4) Hypertension Current Visit: No Status: Chronic Code(s): I10 - ESSENTIAL (PRIMARY) HYPERTENSION - Plan #Weakness possibly 2/2 TIA vs MS -FmHx of MS -History of TIA, risk factors include HTN, smoking -NIHSS score of 13 before her BP reduced from 190s to 150s, then improved to NIHSS score of 7 -CT head neg -CTA angio neg -Trop <0.01 -hold home bp meds for permissive htn -residual weakness during exam, symptoms uncharacteristic for stroke -echo done on previous hospitalization, without any vegetations -MR Brain/Spin with and without contrast ordered -atorvastatin -asa #HTN -BP in ED 190/100, lowered to 150s with hydralazine -160s during evaluation -did not take home meds this morning -hold home meds for permissive HTN -Labetalol SBP >180 #DM2 with diabetic neuropathy -Did not take insulin this am -continue glargine 32u qam -continue metformin 1000mg qam -moderate sliding scale -ACHS accuchecks -continue lyrica for diabetic neuropathy -will monitor and adjust insulin as needed #anxiety/depression -continue home wellbutrin DVT proph: SCDs, high fall risk GI proh: famotidine Code status: DNR Dispo: workup for weakness, tia vs MS FMR H&P: Upper Level - Pertinent history Pt is a 68yo AA F with PMH of HTN, DM, recent TIA with negative stroke workup one month ago presents with L sided weakness this AM. NIH at presentation 13, down to 7 documented in ED. On my interview, pt reports generalized weakness, worse on L, and ataxia with multiple falls recently as well as a new bowel incontinence x 1wk. FHx: MS-brother - Pertinent findings VSS General: NAD, difficulty with word finding, prominitne studtter, vocal tics Neuro: decreased sensation of the L face, L CN7 deficit, tongue deviation to the L, ataxic limbs in finger to nose b/l, unable to perform dysdiadokinesia of b/l UE, decreased sensation of the LLE, strength 2/5 LLE, 3/5 RLE, 5/5 b/l UE. Negative Rhomberg. Psych: appears depressed CThead- negative for intracranial pathology CTA- negative for stenosis or aneurysm - Plan Date/Time: 02/24/19 1341 I, Antoinette Wallace, have evaluated this patient and agree with findings/plan as outlined by summer internship resident. Pertinent changes/additions are listed here. Weakness 2/2 CVA vs TIA vs MS Neuro exam not consistent with any CVA patterns although will continue permissive HTN. Negative CVA workup 1 month ago. Concern wiht relapsing and remitting pattern of neural deficits for MS- also with positive FHx. Will get MRIbrain and spine to evaluate. - continue statin, ASA, bedside swallow wnl, echo neg 1 month ago - prn Labetalol for bp 220/110 HTN - allow for permissive HTN - hold home meds DM2 - Continue home Lantus - SSI For the complete H&P, see summer internship note above. Addendum - Attending - Attending Attestation Date/Time: 02/24/192019 I personally evaluated the patient and discussed the management with Dr. Mejia. I agree with the History, Examination, Assessment and Plan documented above with any addition or exceptions noted below. The patient presented with left sided weakness that began this morning while she was in her bathroom. The patient has had some incontinence in the past week. She initially noted left sided weakness then told me both of her legs were weak. Agree with neuro exam documented above. These symptoms are not in a normal stroke distribution however we will get an MRI. She has had several hospitalizations with stroke like symtpoms and has a brother with MS with very similar symptoms. Will get MRI of brain and spine to further examine.
[2019-02-24] MEDS ORDERED: Bisacodyl 5 MG TAB PO PRN (15:04)
[2019-02-24 15:53] LABS: Troponin I Less than 0.010 ng/mL (< 0.028)
[2019-02-24] MEDS ORDERED: Dextrose 50% Abboject 50 ML SYRINGE SLOW IVP PRN (16:45)
[2019-02-24] MEDS ORDERED: Dextrose 5% in Water 1,000 ML IV PRN (16:45)
[2019-02-24] MEDS ORDERED: Labetalol HCl 100 MG/20 ML VIAL SLOW IVP PRN (17:20)
[2019-02-24] MEDS: HumaLOG 300 UNITS/3 ML VIAL SC PRN ×2 (17:55→21:56)
[2019-02-24] MEDS: Acetaminophen 325 MG TAB PO PRN (18:11)
[2019-02-24] MEDS: Pregabalin 50 MG CAP PO SCH (21:50)
[2019-02-24] MEDS: Famotidine 20 MG TAB PO SCH (21:51)
[2019-02-24] MEDS: buPROPion 75 MG TAB PO SCH (21:51)
[2019-02-24] MEDS: Atorvastatin Calcium 40 MG TAB PO SCH (21:51)
--- NOTE | 2019-02-25 05:49 | PDOC.FM ---
- Subjective Subjective: Pt states that she feel much better today than she did yesterday. Her weakness in her left leg has resolved and only notes some mild residual numbness to her left foot. Pt to get MRI brain/spine today. - Objective Vital Signs & Weight: Vital Signs (12 hours) Temp Pulse Resp BP Pulse Ox 02/25/19 04:00 98.4 F 86 16 140/63 94 L 02/25/19 00:00 98.1 F 80 16 159/83 H 98 02/24/19 20:00 98.1 F 87 16 170/90 H 100 Weight Weight 62.188 kg I&O: 02/23/19 02/24/19 02/25/19 06:59 06:59 06:59 Intake Total 240 Balance 240 Result Diagrams: 02/24/19 09:26 02/24/19 09:26 Phys Exam - Physical Examination Constitutional: NAD Stuttering speech HEENT: PERRLA, moist MMs right sided facial droop, chronic 2/2 Fenton's palsy Neck: supple, full ROM Respiratory: no wheezing, no rales, no rhonchi, clear to auscultation bilateral Cardiovascular: RRR, no significant murmur Gastrointestinal: soft, non-tender Musculoskeletal: no edema, pulses present Neurological: moves all 4 limbs Upper extremity ataxia, decreased sensation to dorsal left foot No pronator drift, equal lower extremity strength 3/5 Psychiatric: normal affect, A&O x 3 Skin: no rash Dx/Plan (1) Transient ischemic attack (TIA) Status: Suspected (2) Depression Code(s): F32.9 - MAJOR DEPRESSIVE DISORDER, SINGLE EPISODE, UNSPECIFIED Status : Acute (3) Diabetes Code(s): E11.9 - TYPE 2 DIABETES MELLITUS WITHOUT COMPLICATIONS Status: Acute Qualifiers: Diabetes mellitus type: type 2 Diabetes mellitus usp insulin use: unspecified assistant terminal manager insulin use status Diabetes mellitus complication status : with neurologic complications (4) Hypertension Code(s): I10 - ESSENTIAL (PRIMARY) HYPERTENSION Status: Chronic - Plan Plan: Focal weakness/numbness 2/2 TIA vs MS -FmHx of MS -History of TIA, risk factors include HTN, smoking -NIHSS score of 13 before her BP reduced from 190s to 150s, then improved to NIHSS score of 7 -CT head neg -CTA angio neg -Trop <0.01 -hold home bp meds for permissive htn -weakness has resolved today, residual numbness to dorsal left foot, mild-mod upper extremity ataxia -echo done on previous hospitalization, without any vegetations -MR Brain/Spin with and without contrast today -atorvastatin -asa HTN -BP in ED 190/100, lowered to 150s with hydralazine -160s during evaluation -did not take home meds this morning -hold home meds for permissive HTN -Labetalol SBP >180 DM2 with diabetic neuropathy -Did not take insulin this am -continue glargine 32u qam -continue metformin 1000mg qam -moderate sliding scale -ACHS accuchecks -continue lyrica for diabetic neuropathy -will monitor and adjust insulin as needed Anxiety/depression -continue home wellbutrin DVT proph: SCDs, high fall risk GI proh: famotidine Code status: DNR Dispo: workup for weakness, tia vs MS
[2019-02-25] MEDS: HumaLOG 300 UNITS/3 ML VIAL SC PRN ×3 (06:02→18:21)
[2019-02-25] MEDS: metFORMIN 500 MG TAB PO SCH (07:57)
[2019-02-25] MEDS: buPROPion 75 MG TAB PO SCH ×2 (08:34→20:23)
[2019-02-25] MEDS: Famotidine 20 MG TAB PO SCH ×2 (08:34→20:24)
[2019-02-25] MEDS: Aspirin 81 mg Enteric Coated Tablet PO SCH (08:35)
[2019-02-25] MEDS: Pregabalin 50 MG CAP PO SCH ×3 (08:35→20:22)
[2019-02-25] MEDS: Insulin Glargine 32 UNITS in Pre-Filled Syringe 1 EACH SC SCH (08:38)
[2019-02-25] MEDS ORDERED: Prevnar 13-Val Conj/PF 0.5 ML SYRINGE IM ONE (09:00)
[2019-02-25] MEDS ORDERED: Non-Formulary Item 1 EACH (Insulin Glargine,Hum.Rec.Anlog [Lantus Solostar] 32 UNIT) SC SCH (09:00)
--- NOTE | 2019-02-25 12:01 | PRG ---
DATE OF SERVICE: 02/25/2019 Ms. Galvan is an interesting patient with some unusual neurological findings. We are awaiting the results of an MRI to consider the possibility of MS of which she has a family history. She has had no progression of her symptoms. She is still hypertensive and we will start her oral medications probably later today. Otherwise, we will await the results of the MRI and ask Neurology for input. Job ID: [id number]
--- NOTE | 2019-02-25 16:06 | MRI ---
EXAM: MRI lumbar spine without and with contrast HISTORY: Weakness and ataxia. Concern for multiple sclerosis. COMPARISON: None TECHNIQUE: Multiple planar multisequence MR images were obtained of the lumbar spine without and with contrast. FINDINGS: The vertebral bodies and intervertebral discs demonstrate normal height and alignment without fractur e or subluxation. Mild generalized disc desiccation is seen. There are foci of high T2 signal in the bilateral kidneys which represent cysts. The paraspinal soft tissues are unremarkable. No marrow signal abnormality is present. The conus medullaris terminates normally at T12/L1. No abnormal signal is seen in the conus medullari s. No abnormal enhancement is seen on this examination. T12/L1: No significant posterior bulge or protrusion. No posterior facet arthrosis. No central ulices l stenosis. No neural foraminal stenosis L1/2: No significant posterior bulge or protrusion. No posterior facet arthrosis. No central canal stenosis. No neural foraminal stenosis L2/3: No significant posterior bulge or protrusion. Moderate bilateral posterior facet arthrosis. M ild central canal stenosis. No neural foraminal stenosis L3/4: A small generalized concentric disc bulge is seen. Mild bilateral posterior facet arthrosis. No central canal stenosis. Mild bilateral neural foraminal stenosis L4/5: A small generalized concentric disc bulge is seen. Moderate bilateral posterior facet arthrosi s. No central canal stenosis. Mild bilateral neural foraminal stenosis L5/S1: No significant posterior bulge or protrusion. No posterior facet arthrosis. No central canal stenosis. No neural foraminal stenosis IMPRESSION: 1. Degenerative changes of the lumbar spine as above. 2. No abnormal signal in the conus medullaris
--- NOTE | 2019-02-25 17:13 | MRI ---
MRI THORACIC SPINE WITH AND WITHOUT IV CONTRAST: HISTORY: Ataxia. Weakness. Possible multiple sclerosis. COMPARISON: None. FINDINGS: Degenerative changes are seen in the cervical spine. Normal signal intensity is demonstrated in the bone marrow of the thoracic spine. There is no signif icant narrowing of the central spinal canal or neural foramina at any level of the thoracic spine. M inimal disk osteophyte complexes are seen in the upper thoracic spine. The spinal cord is normal in contour and signal intensity. A few areas of altered signal intensity a re seen in the spinal cord, which is most likely artifactual. No abnormal areas of enhancement are s een after the administration of intravenous contrast, to suggest an active demyelinating plaque withi n the spinal cord. The prevertebral soft tissues have a normal MRI appearance. There is an increased T2 and corresponding decreased T1 weighted signal intensity lesion, superior po le, right kidney, incompletely imaged, but post enhanced images do not demonstrate enhancement, and t his is most compatible with a cyst. This was present on a prior CT abdomen on 02/13/2018. The conus medullaris is normal in appearance and terminates at the T12-L1 level. IMPRESSION: 1. There is no high-grade stenosis involving the central spinal canal or neural foramina at any leve l of the thoracic spine. 2. No signal abnormality is seen within the spinal cord to suggest the possibility of a demyelinatin g process, based on this examination. 3. Superior pole right renal cyst. 4. Degenerative changes in the cervical spine. 5. Curvilinear area of increased T2 weighted signal intensity at the posterolateral aspect of the up per thoracic trachea. This does not demonstrate enhancement on post contrast images and may be relat ed to secretions within the trachea. A small amount of fluid signal intensity is seen within the eso phagus, which could be related to gastroesophageal reflux. POS: [place]
--- NOTE | 2019-02-25 17:17 | MRI ---
MRI BRAIN WITH AND WITHOUT CONTRAST: INDICATIONS: Ataxia. Weakness. Evaluation for multiple sclerosis. COMPARISON: Reference is made to prior brain MRI from 01/20/2019. FINDINGS: There is redemonstration of multifocal bilateral periventricular white matter signal abnormalities. There is no evidence of restricted diffusion. Foci of susceptibility are seen involving the bilatera l lentiform nuclei, the head of the left caudate nucleus, and the region of the body of the right co rpus callosum, similar appearing. There is no pathologic intraaxial enhancement. IMPRESSION: 1. Persistent multifocal bilateral cerebral hemispheric signal abnormalities without evidence of res tricted diffusion or pathologic enhancement. 2. Stable areas of multifocal parenchymal susceptibility, a component of which is due to physiologic bilateral basal ganglia calcifications. Additional punctate susceptibility foci are nonspecific. POS: Jennifer
[2019-02-25] MEDS: Lisinopril 20 MG TAB PO SCH (20:23)
[2019-02-25] MEDS: Atorvastatin Calcium 40 MG TAB PO SCH (20:23)
[2019-02-25] MEDS: Carvedilol 25 MG TAB PO SCH (20:23)
[2019-02-26] MEDS: HumaLOG 300 UNITS/3 ML VIAL SC PRN ×2 (05:49→17:28)
--- NOTE | 2019-02-26 05:56 | PDOC.FM ---
- Subjective Subjective: Pt states she is feeling much better today, near her baseline. She feels her speech difficulties have completely resolved at this point. She states she was able to stand yesterday with her legs buckling. She also feels her coordination in her arms have improved. 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 Neck: supple, full ROM Respiratory: no wheezing, no rales, no rhonchi, clear to auscultation bilateral Cardiovascular: RRR, no significant murmur Gastrointestinal: soft, non-tender, positive bowel sounds Musculoskeletal: no edema, pulses present Neurological: moves all 4 limbs Right facial droop, decreased sensation to left dorsal foot Psychiatric: normal affect, A&O x 3 Skin: no rash, cap refill <2 seconds Dx/Plan (1) Transient ischemic attack (TIA) Status: Suspected (2) Depression Code(s): F32.9 - MAJOR DEPRESSIVE DISORDER, SINGLE EPISODE, UNSPECIFIED Status : Acute (3) Diabetes Code(s): E11.9 - TYPE 2 DIABETES MELLITUS WITHOUT COMPLICATIONS Status: Acute Qualifiers: Diabetes mellitus type: type 2 Diabetes mellitus intermediate card tender insulin use: unspecified intermediate card tender insulin use status Diabetes mellitus complication status : with neurologic complications (4) Hypertension Code(s): I10 - ESSENTIAL (PRIMARY) HYPERTENSION Status: Chronic - Plan Plan: Focal weakness/numbness - likely 2/2 to TIA -FmHx of MS -History of TIA, risk factors include HTN, smoking -NIHSS score of 13 before her BP reduced from 190s to 150s, then improved to NIHSS score of 7 -CT head neg, CTA angio neg -After 24hr of permissive HTN, home BP meds resumed -Presenting weakness and speech difficulties resolved, residual parethesias to left foot - chronic per pt -MR Brain/Spine yesterday significant for previously noted multifocal bilateral periventricular white matter signal abnormalities, no evidence of restricted diffuse, stable areas of multifocal parenchymal susceptibility, no indications of demeylinating process, superior pole right renal cyst -Risk modification: atorvastatin, asa, BP control -Consulted neurology 02/25, appreciate recs -Rehab Assessment ordered today HTN -BP in ED 190/100, lowered to 150s with hydralazine -Home meds held for first 24 hrs for permissive HTN, resumed 02/25 -Labetalol SBP >180 DM2 with diabetic neuropathy -continue glargine 32u qam -continue metformin 1000mg qam -moderate sliding scale -ACHS accuchecks -continue lyrica for diabetic neuropathy -will monitor and adjust insulin as needed Anxiety/depression -continue home wellbutrin DVT proph: SCDs, high fall risk GI proh: famotidine Code status: DNR Dispo: workup for weakness, tia vs MS
[2019-02-26 06:41] LABS: #Basophils 0.1 thou/uL (0.0-0.2); #Eosinphils 0.3 thou/uL (0.0-0.7); #Lymphocytes 4.1 thou/uL (1.20-3.40); #Monocytes 0.8 thou/uL (0.11-0.59); #Neutrophils 5.5 thou/uL (1.40-6.50); %Basophils 0.6 % (0.0-1.0); %Eosinophils 2.7 % (0.0-10.0); %Lymphocytes 37.9 % (21.0-51.0); %Monocytes 7.5 % (0.0-10.0); %Neutrophils 51.3 % (42.0-75.0); Mean Corpuscular HGB CONC 31.8 g/dL (32.0-36.0); Mean Corpuscular Hemoglobin 27.7 pg (27.0-31.0); Mean Corpuscular Volume 87.1 fL (78.0-98.0); Mean Platelet Volume 8.6 fL (7.4-10.4); Platelet Count 203 thou/uL (130-400); RBC Distribution Width 12.2 % (11.5-14.5); Red Blood Cell (RBC) Count 4.31 mill/uL (4.20-5.40); White Blood Cell (WBC) Count 10.8 thou/uL (4.8-10.8)
[2019-02-26 06:44] LABS: Hemoglobin A1c 13.3 % (4.0-6.0)
[2019-02-26 06:58] LABS: ALT (SGPT) 9 U/L (8-55); AST (SGOT) 9 U/L (5-34); Albumin 3.4 g/dL (3.4-4.8); Alkaline Phosphatase 94 U/L (40-150); Anion Gap 12 mmol/L (10-20); BUN (Urea Nitrogen) 17 mg/dL (9.8-20.1); Bilirubin, Total 0.3 mg/dL (0.2-1.2); CRP (Inflammatory) Less than 0.50 mg/dL (= or < 0.5); Calc. Creatinine Clearance 62 mL/min (70-130); Calcium 9.5 mg/dL (7.8-10.44); Carbon Dioxide 28 mmol/L (23-31); Chloride 103 mmol/L (98-107); Estimated GFR-MDRD 79; Globulin 2.8 g/dL (2.4-3.5); Glucose 230 mg/dL (80-115); Potassium 4.2 mmol/L (3.5-5.1); Protein, Total 6.2 g/dL (6.0-8.3); Sodium 139 mmol/L (136-145)
[2019-02-26] MEDS: Aspirin 81 mg Enteric Coated Tablet PO SCH (08:32)
[2019-02-26] MEDS: Pregabalin 50 MG CAP PO SCH ×3 (08:32→21:51)
[2019-02-26] MEDS: Amlodipine 10 MG TAB PO SCH (08:32)
[2019-02-26] MEDS: Carvedilol 25 MG TAB PO SCH ×2 (08:32→21:54)
[2019-02-26] MEDS: metFORMIN 500 MG TAB PO SCH (08:32)
[2019-02-26] MEDS: Lisinopril 20 MG TAB PO SCH ×2 (08:33→21:50)
[2019-02-26] MEDS: buPROPion 75 MG TAB PO SCH ×2 (08:35→21:50)
[2019-02-26] MEDS: Famotidine 20 MG TAB PO SCH (08:35)
[2019-02-26] MEDS: Insulin Glargine 32 UNITS in Pre-Filled Syringe 1 EACH SC SCH (08:41)
[2019-02-26] MEDS ORDERED: Insulin Glargine 36 UNITS in Pre-Filled Syringe 1 EACH SC SCH (09:00)
[2019-02-26] MEDS: Insulin Glargine 36 UNITS in Pre-Filled Syringe 1 EACH SC SCH (11:33)
--- NOTE | 2019-02-26 11:44 | PRG ---
DATE OF SERVICE: 02/26/2019 Ms. Galvan states she feels somewhat better this morning. Her MRI of the brain and spine really did not reveal any significant pathology that could account for her symptoms. Our working diagnosis is possibly a TIA, but we are also awaiting input from Dr. Gaines. I would suggest we go ahead and proceed and check an HIV, RPR, and hep C antibody and consider an LP again pending the input from Dr. Gaines. Job ID: [id number]
[2019-02-26 14:33] LABS: Syphilis Antibody Index 7.99 S/CO (<1.00 Non-Reactive)
--- NOTE | 2019-02-26 16:46 | CON ---
DATE OF CONSULTATION: 02/26/2019 CONSULTING PHYSICIAN: Hospitalist Service. IMPRESSION: 1. Chronic left-sided weakness secondary to small vessel disease. 2. Hypertension. 3. Diabetes. 4. History of coronary artery disease. PLAN: 1. Outpatient echocardiogram. 2. Carotid ultrasound. 3. Continue aspirin and a statin. 4. [facility] transfer. HISTORY OF PRESENT ILLNESS: Ms. Galvan is a 68-year-old black female, who presented with complaints of increased difficulty walking. She reports she has had weakness in her left leg for over 2 years. She has never really sought medical attention for it. She reportedly was getting around with the use of a cane or a walker at the house. She felt like the situation was getting worse, so she came in for evaluation. She had an MRI of the brain done, which showed bilateral moderately severe periventricular white matter ischemic changes, but no acute abnormalities. There are no areas of enhancement. She has MRI of the thoracic and lumbar spine, which were both unremarkable. CT angiogram showed no evidence of stenosis. PAST MEDICAL HISTORY: As listed above. ALLERGIES: PER CHART. SOCIAL HISTORY: No tobacco or alcohol. FAMILY HISTORY: Noncontributory. REVIEW OF SYSTEMS: Ten system review of systems is otherwise negative. PHYSICAL EXAMINATION: GENERAL: She is a thin elderly woman, in no acute distress. VITAL SIGNS: Stable. She has been afebrile. HEENT: Pupils are equal. Conjunctivae are clear. Oropharynx clear. NECK: Supple. No lymphadenopathy. EXTREMITIES: No cyanosis or edema. NEUROLOGIC: She was alert and cooperative. Her speech was fluent and clear. She has a slight left facial droop. I did not elicit any weakness on the left arm. She can be brought to a standing position, but was very odd in her manner as she attempted to pace in place. She was able to hand picker both legs independently. She acted very unsteady on her feet. She would not like to go for support. Sensation was intact to touch. SUMMARY: This appears to be a chronic problem with some left-sided weakness, which she is subjectively feeling is getting worse, not anything acute on her imaging. I agree with continued stroke prevention and treatment. I agree with transfer as well. Job ID: [id number]
--- NOTE | 2019-02-26 19:56 | MRI ---
MRI CERVICAL SPINE WITH AND WITHOUT CONTRAST: 02/26/19 COMPARISON: None. HISTORY: Ataxia, weakness. TECHNIQUE: Multiplanar and multisequence MR imaging of the cervical spine with and without contrast. FINDINGS: The sagittal STIR imaging demonstrates no focal area of osseous marrow edema. There is a benign heman gioma noted within the C7 vertebral body. No prevertebral soft tissue swelling. No anterolisthesis or retrolisthesis is noted. C2-3: Small central disc protrusion. Mild left facet hypertrophy. No significant central canal or jayce ral foraminal stenosis. C3-4: Mild disc bulge. No significant central canal or neural foraminal stenosis. C4-5: Mild facet and uncovertebral osteophyte formation on the right. No significant central canal or neural foraminal stenosis. C5-6: There is disc space narrowing, disc desiccation, anterior osteophyte formation and degenerative end plate change. There is mild disc bulge with partial effacement of ventral thecal sac and mild ce ntral canal stenosis. Facet and uncovertebral osteophyte formation noted bilaterally, right greater t mcclellan left. Moderate right and mild left neural foraminal stenosis. C6-7: Disc space narrowing, disc desiccation, anterior osteophyte formation, and mild disc bulge with mild central canal stenosis. Mild bilateral neural foraminal stenosis. C7-T1: Mild bilateral facet hypertrophy with no significant central canal or neural foraminal stenos is. There is no focal area of abnormalT2 signal intensity within the cervical cord. The flow void for the vertebral artery on the right is attenuated which may signify occlusion or slow flow within the right vertebral artery. Postcontrast imaging demonstrates no abnormal enhancement involving the contents of the thecal sac, t he intervertebral discs, or the imaged osseous structures. IMPRESSION: Multilevel degenerative change. No abnormal signal intensity within the cervical cord. POS: OFF
[2019-02-26] MEDS: Atorvastatin Calcium 40 MG TAB PO SCH (21:54)
[2019-02-26 23:21] LABS: Syphilis Antibody INDETERMINATE (Nonreactive)
--- NOTE | 2019-02-27 06:09 | PDOC.FM ---
- Subjective Subjective: Pt's neuro status and weakness has remained stable over the past couple days. She states that she feels she is benefiting from PT at this time. Is agreeable to SNF care following DC. - Objective Vital Signs & Weight: Vital Signs (12 hours) Temp Pulse Resp BP BP Pulse Ox 02/27/19 04:00 97.8 F 70 16 138/82 96 02/27/19 00:00 98 F 80 16 143/79 H 100 02/26/19 21:50 157/87 H 02/26/19 20:00 98.1 F 82 16 157/87 H 97 Weight Admit Weight 62.188 kg Weight 62.188 kg I&O: 02/25/19 02/26/19 02/27/19 06:59 06:59 06:59 Intake Total 720 1090 720 Balance 720 1090 720 Result Diagrams: 02/26/19 06:27 02/26/19 06:27 Phys Exam - Physical Examination Constitutional: NAD HEENT: PERRLA, moist MMs Neck: no nodes, full ROM Respiratory: no wheezing, no rales, clear to auscultation bilateral Cardiovascular: RRR, no significant murmur Gastrointestinal: soft, non-tender, no distention Musculoskeletal: no edema, pulses present Neurological: moves all 4 limbs Right sided white's palsy, chronic Psychiatric: normal affect, A&O x 3 Skin: no rash, normal turgor Dx/Plan (1) Transient ischemic attack (TIA) Status: Suspected (2) Depression Code(s): F32.9 - MAJOR DEPRESSIVE DISORDER, SINGLE EPISODE, UNSPECIFIED Status : Acute (3) Diabetes Code(s): E11.9 - TYPE 2 DIABETES MELLITUS WITHOUT COMPLICATIONS Status: Acute Qualifiers: Diabetes mellitus type: type 2 Diabetes mellitus long term care social worker insulin use: unspecified [facility]ci insulin use status Diabetes mellitus complication status : with neurologic complications (4) Hypertension Code(s): I10 - ESSENTIAL (PRIMARY) HYPERTENSION Status: Chronic - Plan Plan: Focal weakness/numbness - likely 2/2 to TIA -History of TIA, risk factors include HTN, smoking -CT head neg, CTA angio neg -After 24hr of permissive HTN, home BP meds resumed -Presenting weakness and speech difficulties resolved, residual parethesias to left foot - chronic per pt -MR Brain/Spine yesterday significant for previously noted multifocal bilateral periventricular white matter signal abnormalities, no evidence of restricted diffuse, stable areas of multifocal parenchymal susceptibility, no indications of demeylinating process, superior pole right renal cyst -Risk modification: atorvastatin, asa, BP control -Consulted neurology 02/25 - believes ongoing weakness and sx due to small vessel dz, recommends RF optimization, outpt echo and carotid US, and trx to SNF -Rehab Assessment ordered yesterday -CM: request sent to [facility] HTN -BP in ED 190/100, lowered to 150s with hydralazine -Home meds held for first 24 hrs for permissive HTN, resumed 02/25 -Labetalol SBP >180 DM2 with diabetic neuropathy -continue glargine 32u qam -continue metformin 1000mg qam -moderate sliding scale -ACHS accuchecks -continue lyrica for diabetic neuropathy -will monitor and adjust insulin as needed Anxiety/depression -continue home wellbutrin DVT proph: SCDs, high fall risk GI proh: famotidine Code status: DNR Dispo: Continued assessment of weakness with PT/OT and pending transfer to SNF upon acceptance
[2019-02-27] MEDS: Insulin Glargine 36 UNITS in Pre-Filled Syringe 1 EACH SC SCH (08:22)
[2019-02-27] MEDS: Lisinopril 20 MG TAB PO SCH ×2 (08:23→20:46)
[2019-02-27] MEDS: Aspirin 81 mg Enteric Coated Tablet PO SCH (08:23)
[2019-02-27] MEDS: Pregabalin 50 MG CAP PO SCH ×3 (08:24→20:48)
[2019-02-27] MEDS: Carvedilol 25 MG TAB PO SCH ×2 (08:25→20:50)
[2019-02-27] MEDS: metFORMIN 500 MG TAB PO SCH (08:25)
[2019-02-27] MEDS: buPROPion 75 MG TAB PO SCH ×2 (08:25→20:47)
[2019-02-27] MEDS: Amlodipine 10 MG TAB PO SCH (08:26)
[2019-02-27] MEDS: HumaLOG 300 UNITS/3 ML VIAL SC PRN (11:06)
--- NOTE | 2019-02-27 12:00 | PRG ---
DATE OF SERVICE: 02/27/2019 Ms. Galvan was seen yesterday by the Neurology Service. Dr. Gaines feels this is possibly due to small vessel disease as MRI does not show any johan stroke. We are awaiting a rehab placement for Ms. Galvan. This morning, she is in fact quite cheerful and talkative. PT is continuing to work with her pending transfer to a rehab bed. Job ID: [id number]
[2019-02-27] MEDS: Atorvastatin Calcium 40 MG TAB PO SCH (20:48)
[2019-02-28] MEDS: Acetaminophen 325 MG TAB PO PRN (01:47)
--- NOTE | 2019-02-28 05:42 | PDOC.FM ---
- Subjective Subjective: Pt states she continues to do well today. Is looking forward to starting rehab this afternoon. No complaints or events over night. - Objective Vital Signs & Weight: Vital Signs (12 hours) Temp Pulse Resp BP BP Pulse Ox 02/28/19 04:00 97.8 F 71 18 140/80 96 02/28/19 00:12 97.9 F 77 19 129/72 95 02/27/19 20:46 170/96 H 02/27/19 20:00 98.0 F 80 18 160/83 H 95 Weight Admit Weight 62.188 kg Weight 62.188 kg I&O: 02/26/19 02/27/19 02/28/19 06:59 06:59 06:59 Intake Total 1090 960 720 Balance 1090 960 720 Result Diagrams: 02/26/19 06:27 02/26/19 06:27 Phys Exam - Physical Examination Constitutional: NAD HEENT: PERRLA right sided chronic palsy Neck: supple, full ROM Respiratory: no wheezing, no rales, no rhonchi, clear to auscultation bilateral Cardiovascular: RRR, no significant murmur, no rub Gastrointestinal: soft, non-tender, no distention Musculoskeletal: no edema, pulses present Neurological: non-focal, moves all 4 limbs Psychiatric: normal affect, A&O x 3 Skin: no rash, cap refill <2 seconds Dx/Plan (1) Transient ischemic attack (TIA) Status: Suspected (2) Depression Code(s): F32.9 - MAJOR DEPRESSIVE DISORDER, SINGLE EPISODE, UNSPECIFIED Status : Acute (3) Diabetes Code(s): E11.9 - TYPE 2 DIABETES MELLITUS WITHOUT COMPLICATIONS Status: Acute Qualifiers: Diabetes mellitus type: type 2 Diabetes mellitus custodial insulin use: unspecified custodial insulin use status Diabetes mellitus complication status : with neurologic complications (4) Hypertension Code(s): I10 - ESSENTIAL (PRIMARY) HYPERTENSION Status: Chronic - Plan Plan: Focal weakness/numbness - likely 2/2 to TIA -History of TIA, risk factors include HTN, smoking -CT head neg, CTA angio neg -After 24hr of permissive HTN, home BP meds resumed -Presenting weakness and speech difficulties resolved, residual parethesias to left foot - chronic per pt -MR Brain/Spine yesterday significant for previously noted multifocal bilateral periventricular white matter signal abnormalities, no evidence of restricted diffuse, stable areas of multifocal parenchymal susceptibility, no indications of demeylinating process, superior pole right renal cyst -Risk modification: atorvastatin, asa, BP control -Consulted neurology 02/25 - believes ongoing weakness and sx due to small vessel dz, recommends RF optimization, outpt echo and carotid US, and trx to SNF -Rehab Assessment suggested SNF placement -CM: pt accepted by [facility], awaiting insurance approval HTN -BP in ED 190/100, lowered to 150s with hydralazine -Home meds held for first 24 hrs for permissive HTN, resumed 02/25 -Labetalol SBP >180 DM2 with diabetic neuropathy -continue glargine 32u qam -continue metformin 1000mg qam -moderate sliding scale -ACHS accuchecks -continue lyrica for diabetic neuropathy -will monitor and adjust insulin as needed Anxiety/depression -continue home wellbutrin DVT proph: SCDs, high fall risk GI proh: famotidine Code status: DNR Dispo: Continued assessment of weakness with PT/OT and pending transfer to SNF upon acceptance
[2019-02-28] MEDS: buPROPion 75 MG TAB PO SCH (09:47)
[2019-02-28] MEDS: metFORMIN 500 MG TAB PO SCH (09:47)
[2019-02-28] MEDS: Carvedilol 25 MG TAB PO SCH (09:47)
[2019-02-28] MEDS: Aspirin 81 mg Enteric Coated Tablet PO SCH (09:47)
[2019-02-28] MEDS: Amlodipine 10 MG TAB PO SCH (09:47)
[2019-02-28] MEDS: Insulin Glargine 36 UNITS in Pre-Filled Syringe 1 EACH SC SCH (09:47)
[2019-02-28] MEDS: Lisinopril 20 MG TAB PO SCH (09:48)
[2019-02-28] MEDS: Pregabalin 50 MG CAP PO SCH (09:48)
[2019-02-28 11:15] VITALS: BP 152/80; TEMP 97.8
--- NOTE | 2019-02-28 11:41 | PRG ---
DATE OF SERVICE: 02/28/2019 Ms. Galvan is awake, alert, and very pleasant this morning. She is being transferred to her rehab bed this afternoon. Job ID: [id number]
[2019-02-28] MEDS: HumaLOG 300 UNITS/3 ML VIAL SC PRN (12:47)
[2019-02-28 14:10] LABS: HIV-1 Quantitative, RNA PCR <20 copies/mL (.)
--- NOTE | 2019-03-01 08:47 | DIS ---
DATE OF ADMISSION: 02/24/2019 DATE OF DISCHARGE: 02/28/2019 RESIDENT: Damian Jimenez DO ADMITTING ATTENDING: Lexie Montoya MD DISCHARGE ATTENDING: Vick Abdullahi MD. CONSULTS: 1. Neurology, Dr. Gaines. 2. Case Management, PT, OT, and Speech Therapy. PROCEDURES: None. PRIMARY DIAGNOSES: Transient ischemic attack, weakness, and peripheral vascular disease. SECONDARY DIAGNOSES: Diabetes and hypertension. DISCHARGE MEDICATIONS: 1. Amlodipine 10 mg daily. 2. Aspirin 81 mg daily. 3. Atorvastatin 40 mg daily. 4. Bupropion 150 mg b.i.d. 5. Coreg 25 mg b.i.d. 6. Metformin 1000 mg daily. 7. Lyrica 50 mg t.i.d. 8. Ranitidine 150 mg b.i.d. 9. Glargine 32 units q.a.m. 10. Zestril 30 mg b.i.d. HISTORY OF PRESENT ILLNESS AND HOSPITAL COURSE: A 68-year-old female presented to the ED and reported frequent episodes of her legs giving out on her, stated that this morning they were trembling and when stopped causing her to drop to the floor and called 911. The patient also noted difficulty swallowing, trouble remembering details, and a right-sided headache to her forehead. 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 Initial NIHSS score in the ED was 13, later repeated after blood pressure control was a score of 7. CT of the head without contrast was negative for any acute findings. CT angio of [place] of [place] with contrast showed a stable exam. CTA head and neck also showed a stable exam. The patient was subsequently admitted to the stroke floor for continued evaluation. The next day, the patient complained of ongoing numbness to her left foot as well as stuttering speech and ataxia of her upper extremities. Over the next few days, these symptoms rapidly resolved aside from the numbness to her foot. Later, the patient reported that she has had numbness in her foot for quite some time and this is nothing new for her. This was likely attributed to small vessel disease and diabetes. The patient takes Lyrica for peripheral neuropathy. An MRI of her brain and spine was ordered due to concern for possible MS or stroke. The study was negative for any acute findings and showed chronic calcifications that were seen on previous studies. Neurologist was consulted and saw the patient. He felt that the patient's symptoms were due to small vessel disease and recommended continued optimization of her risk factors for this. The patient was already on aspirin, multiple blood pressure medications, and a statin. The patient received her basal insulin at 36 units throughout her stay as well as moderate sliding scale. Due to her weakness, PT and OT were consulted. A rehab screen was performed and the recommendation was that the patient be discharged to nursing home facility for inpatient rehab. The patient spoke with Case Management who suggested and they agreed upon discharge to [facility]. The patient was later approved by her insurance for further care there. The patient was subsequently discharged to [facility] for continued rehabilitation. DISPOSITION: Stable. DISCHARGE INSTRUCTIONS: 1. Location: Nursing Home Facility. 2. Diet: Heart healthy, diabetic diet-carb conscious. 3. Activity: As tolerated. 4. Followup: Follow up PCP, Dr. Kiana Robert within 7 days. Job ID: [id number]
== END 2019-02-28 14:04 ==
LOC: ERS 09:01 → 2SE 11:30
PROVIDERS: ADMIT Family Medicine; ATTEND Family Medicine
DX: G45.9 Transient cerebral ischemic attack, unspecified (principal); I73.9 Peripheral vascular disease, unspecified; I10 Essential (primary) hypertension; E11.40 Type 2 diabetes mellitus with diabetic neuropathy, unspecified; G51.0 Bell's palsy; M48.00 Spinal stenosis, site unspecified; I25.10 Atherosclerotic heart disease of native coronary artery without angina pectoris; F41.9 Anxiety disorder, unspecified; F32.9 Major depressive disorder, single episode, unspecified; Z79.4 Long term (current) use of insulin; Z79.82 Long term (current) use of aspirin; Z79.899 Other long term (current) drug therapy; Z86.73 Personal history of transient ischemic attack (TIA), and cerebral infarction without residual deficits; Z87.891 Personal history of nicotine dependence; Z88.2 Allergy status to sulfonamides; Z91.040 Latex allergy status
CPT/HCPCS: 70450; 70496; 70498; 70553; 72156; 72157; 72158; 80053 ×2; 82962 ×5; 83036; 84484 ×2; 85025 ×2; 85610; 85652; 85730; 86140; 86593; 86780; 87521; 87536; 90670; 93005; 94760; 96374; 97110 ×2; 97116 ×4; 97139 ×2; 99285; G0009; G0378 ×6; 36415; 36416; 90471; J0360; J1815; J2997; Q9966

== ENCOUNTER 2019-06-04 04:08 | Emergency (ER) | payer MEDICARE, OTHER ==
[2019-06-04] MEDS ORDERED: HYDROcodone/Acetaminophen 5/325 mg Tablet ONE (04:21)
[2019-06-04 05:09] LABS: #Basophils 0.1 thou/uL (0.0-0.2); #Eosinphils 0.2 thou/uL (0.0-0.7); #Lymphocytes 3.6 thou/uL (1.20-3.40); #Monocytes 0.7 thou/uL (0.11-0.59); #Neutrophils 6.5 thou/uL (1.40-6.50); %Basophils 0.7 % (0.0-1.0); %Eosinophils 1.8 % (0.0-10.0); %Lymphocytes 32.5 % (21.0-51.0); Mean Corpuscular HGB CONC 32.4 g/dL (32.0-36.0); Mean Corpuscular Hemoglobin 27.6 pg (27.0-31.0); Mean Corpuscular Volume 85.3 fL (78.0-98.0); Mean Platelet Volume 9.5 fL (7.4-10.4); Platelet Count 200 thou/uL (130-400); RBC Distribution Width 11.6 % (11.5-14.5); Red Blood Cell (RBC) Count 4.36 mill/uL (4.20-5.40)
[2019-06-04 05:27] LABS: ALT (SGPT) 8 U/L (8-55); AST (SGOT) 7 U/L (5-34); Albumin 3.7 g/dL (3.4-4.8); Alkaline Phosphatase 112 U/L (40-110); Anion Gap 14 mmol/L (10-20); BUN (Urea Nitrogen) 13 mg/dL (9.8-20.1); Bilirubin, Total 0.3 mg/dL (0.2-1.2); Calc. Creatinine Clearance 0 mL/min (70-130); Calcium 9.1 mg/dL (7.8-10.44); Carbon Dioxide 27 mmol/L (23-31); Chloride 100 mmol/L (98-107); Estimated GFR-MDRD 66; Globulin 2.6 g/dL (2.4-3.5); Glucose 511 mg/dL (80-115); Protein, Total 6.3 g/dL (6.0-8.3); Sodium 137 mmol/L (136-145)
--- NOTE | 2019-06-04 08:45 | RAD ---
PORTABLE CHEST: HISTORY: Shortness of breath. Leg swelling. COMPARISON: 01/19/2019 FINDINGS: Heart size is within normal limits. There are atherosclerotic changes of the aorta. The lungs are dorene ar of infiltrates. IMPRESSION: No active intrathoracic disease. POS: [facility]
--- NOTE | 2019-06-04 08:56 | ULT ---
PRELIMINARY REPORT/[facility]/EMERGENCY AFTER HOURS PROCEDURE: PROCEDURE INFORMATION: Exam: US Duplex Left Lower Extremity Veins, Limited Exam date and time: 06/04/2019 4:42 AM Clinical history: 68 years old, female; Leg, lower; Left; Patient HX: Lle pain x 5 days TECHNIQUE: Imaging protocol: Real-time Duplex ultrasound of the Left Lower Extremity with 2-D garza scale, color Doppler flow and spectral waveform analysis with image documentation. Limited exam focused on the lef t lower extremity v veins. COMPARISON: No relevant prior studies available. FINDINGS: Left deep veins: The common femoral, femoral, proximal profunda femoral and popliteal veins are paten t without thrombus. Normal Doppler waveforms. Normal compressibility and/or augmentation response. Left superficial veins: Saphenofemoral junction is patent without thrombus. Soft tissues: Unremarkable. IMPRESSION: No acute findings. No evidence of deep vein thrombosis. Thank you for allowing us to participate in the care of your patient. Dictated and Authenticated by: Pauly Yeung MD 06/04/2019 5:44 AM Central Time ([place] & [place]) FINAL REPORT LEFT LOWER EXTREMITY VENOUS DUPLEX EXAM: Date: 06/04/19 HISTORY: Leg pain and swelling. FINDINGS: Real-time color Doppler evaluation of the left lower extremity was performed from groin to calf. This includes evaluation of the common femoral, superficial and profunda femoral, saphenous, popliteal, a nd posterior tibial veins. This shows a patent deep venous system. There is normal compressibility an d augmentation. IMPRESSION: No evidence of deep venous thrombosis of the left lower extremity. This report is in agreement with the preliminary report issued by [facility]. POS: [facility]
== END 2019-06-04 06:09 | disposition home or self-care (01) ==
LOC: ERS 04:08
DX: M79.662 Pain in left lower leg (principal); E11.9 Type 2 diabetes mellitus without complications; I10 Essential (primary) hypertension; F41.9 Anxiety disorder, unspecified; F32.9 Major depressive disorder, single episode, unspecified; Z87.891 Personal history of nicotine dependence; Z79.899 Other long term (current) drug therapy; Z79.84 Long term (current) use of oral hypoglycemic drugs; Z86.73 Personal history of transient ischemic attack (TIA), and cerebral infarction without residual deficits; Z79.82 Long term (current) use of aspirin
CPT/HCPCS: 36415; 71045; 80053; 84484; 85025; 93005

== ENCOUNTER 2019-06-06 12:35 | Emergency (ER) | payer MEDICARE, OTHER | END 2019-06-06 14:26 | disposition home or self-care (01) | LOC: ERS 12:35 | DX: M79.605 Pain in left leg (principal); E11.9 Type 2 diabetes mellitus without complications; I10 Essential (primary) hypertension; F41.9 Anxiety disorder, unspecified; F32.9 Major depressive disorder, single episode, unspecified; Z87.891 Personal history of nicotine dependence; Z79.82 Long term (current) use of aspirin; Z95.5 Presence of coronary angioplasty implant and graft; Z79.84 Long term (current) use of oral hypoglycemic drugs; Z86.73 Personal history of transient ischemic attack (TIA), and cerebral infarction without residual deficits; Z79.899 Other long term (current) drug therapy | CPT/HCPCS: 99281 ==

== ENCOUNTER 2019-11-18 12:06 | Emergency (ER) | payer MEDICARE, OTHER ==
[~2019-11-18 12:06] MED LIST changes: -ISOVUE-370 76%-LOCM 1 ML ONE; +Iopamidol 370 76% 100 ML VIAL ONE
[2019-11-18 12:48] LABS: #Basophils 0.1 thou/uL (0.0-0.2); #Eosinphils 0.2 thou/uL (0.0-0.7); #Monocytes 0.7 thou/uL (0.11-0.59); #Neutrophils 6.7 thou/uL (1.40-6.50); %Basophils 0.5 % (0.0-1.0); %Eosinophils 1.8 % (0.0-10.0); %Lymphocytes 34.4 % (21.0-51.0); %Monocytes 6.2 % (0.0-10.0); %Neutrophils 57.2 % (42.0-75.0); Hemoglobin 13.4 g/dL (12.0-16.0); Mean Corpuscular HGB CONC 32.4 g/dL (32.0-36.0); Mean Corpuscular Hemoglobin 27.4 pg (27.0-31.0); Mean Corpuscular Volume 84.5 fL (78.0-98.0); Mean Platelet Volume 8.8 fL (7.4-10.4); Platelet Count 209 thou/uL (130-400); RBC Distribution Width 12.9 % (11.5-14.5); Red Blood Cell (RBC) Count 4.88 mill/uL (4.20-5.40); White Blood Cell (WBC) Count 11.7 thou/uL (4.8-10.8)
--- NOTE | 2019-11-18 12:59 | RAD ---
Exam: Chest one view HISTORY:Dyspnea Comparison: 06/04/2019 FINDINGS: Cardiac silhouette: Normal Aorta: Atherosclerosis Pulmonary vessels: Normal Costophrenic angles: Clear LUNGS: No masses or consolidation. Pneumothorax: None Osseous abnormalities: None IMPRESSION: No acute cardiopulmonary process.
[2019-11-18 13:21] LABS: ALT (SGPT) 10 U/L (8-55); AST (SGOT) 9 U/L (5-34); Alkaline Phosphatase 104 U/L (40-110); Anion Gap 14 mmol/L (10-20); BUN (Urea Nitrogen) 27 mg/dL (9.8-20.1); Bilirubin, Total 0.4 mg/dL (0.2-1.2); Calc. Creatinine Clearance 0 mL/min (70-130); Carbon Dioxide 26 mmol/L (23-31); Chloride 102 mmol/L (98-107); Estimated GFR-MDRD 77; Globulin 3.6 g/dL (2.4-3.5); Glucose 228 mg/dL (80-115); Potassium 4.1 mmol/L (3.5-5.1); Protein, Total 7.6 g/dL (6.0-8.3); Sodium 138 mmol/L (136-145)
--- NOTE | 2019-11-18 14:37 | CT ---
CT ABDOMEN AND PELVIS WITH IV CONTRAST: Date: 11/18/2019 HISTORY: Abdominal pain. COMPARISON: 02/13/2018. FINDINGS: The lung bases are unremarkable. No free air, free fluid, or lymphadenopathy seen in the abdomen or p constance. The patient is post cholecystectomy. There is fatty infiltration of the liver. The spleen, salgado creas, and adrenal glands are normal. There are small cysts in the kidneys. Small, fat-containing sup raumbilical ventral hernia is again noted. The small bowel loops are not abnormally dilated. There are vascular calcifications without aneurysma l dilatation of the abdominal aorta. There are degenerative changes in the spine. Uterus is present. There is free air in the urinary bladder. IMPRESSION: 1. Fatty liver. 2. Renal cysts. 3. Small fat-containing supraumbilical hernia. 4. Air in the urinary bladder. Clinical correlation recommended. Recent instrumentation versus fistu lous communication with the bowel or vagina. POS: [facility]
[2019-11-18 15:38] LABS: Bacteria/HPF 4+ HPF (None Seen); Bilirubin Negative (Negative); Blood, Urine Trace (Negative); Clarity Turbid (Clear); Glucose, Urine (Dipstick) Greater than 1000 mg/dL (Negative); Leukocyte 250 Leu/uL (Negative); Nitrite Negative (Negative); Protein, Urine (Dipstick) 50 mg/dL (Neg-Trace); Squamous Epithelial 0-3 HPF (0-3); Urobilinogen Normal mg/dL (Less than 2); WBC/HPF Greater than 50 HPF (0-3)
--- NOTE | 2019-11-22 15:22 | EKG ---
Test Reason : CP Blood Pressure : / mmHG Vent. Rate : 106 BPM Atrial Rate : 106 BPM P-R Int : 156 ms QRS Dur : 088 ms QT Int : 360 ms P-R-T Axes : 076 021 081 degrees QTc Int : 478 ms Sinus tachycardia Possible Left atrial enlargement Left ventricular hypertrophy Abnormal ECG Confirmed by UMA GALVEZ DO ([id number]), production editor VINICIO PLASENCIA ([id number]) on 11/22/2019 3:21:57 PM Referred By: Confirmed By:UMA GALVEZ DO
== END 2019-11-18 15:55 | disposition home or self-care (01) ==
LOC: ERS 12:06
DX: R10.13 Epigastric pain (principal); N39.0 Urinary tract infection, site not specified; R06.02 Shortness of breath; R05 Cough; E11.9 Type 2 diabetes mellitus without complications; I10 Essential (primary) hypertension; G51.0 Bell's palsy; F41.9 Anxiety disorder, unspecified; F32.9 Major depressive disorder, single episode, unspecified; Z87.891 Personal history of nicotine dependence; Z86.73 Personal history of transient ischemic attack (TIA), and cerebral infarction without residual deficits; Z79.82 Long term (current) use of aspirin; Z79.84 Long term (current) use of oral hypoglycemic drugs; Z79.899 Other long term (current) drug therapy
CPT/HCPCS: 71045; 74177; 80053; 81003; 81015; 83690; 84484; 85025; 87077; 87086; 87186; 93005; Q9967

== ENCOUNTER 2019-11-20 13:40 | Emergency (ER) | payer MEDICARE, OTHER ==
[2019-11-20] MEDS ORDERED: Ondansetron PF 4 MG/2 ML Vial ONE (13:56)
--- NOTE | 2019-11-20 14:23 | RAD ---
PORTABLE CHEST: DATE: 11/20/2019. PROVIDED CLINICAL HISTORY: Nausea and vomiting. FINDINGS: Comparison 11/18/2019. Cardiac and mediastinal silhouette is within normal limits. No focal consolidation, pleural fluid, o r pneumothorax apparent. IMPRESSION: No evidence for acute cardiopulmonary process. POS: [facility]
[2019-11-20 14:39] LABS: #Basophils 0.1 thou/uL (0.0-0.2); #Eosinphils 0.1 thou/uL (0.0-0.7); #Lymphocytes 3.2 thou/uL (1.20-3.40); #Monocytes 0.6 thou/uL (0.11-0.59); #Neutrophils 6.9 thou/uL (1.40-6.50); %Basophils 0.9 % (0.0-1.0); %Eosinophils 1.2 % (0.0-10.0); %Lymphocytes 28.9 % (21.0-51.0); %Monocytes 5.6 % (0.0-10.0); %Neutrophils 63.4 % (42.0-75.0); Hemoglobin 14.3 g/dL (12.0-16.0); Mean Corpuscular HGB CONC 32.6 g/dL (32.0-36.0); Mean Corpuscular Hemoglobin 27.5 pg (27.0-31.0); Mean Corpuscular Volume 84.4 fL (78.0-98.0); Mean Platelet Volume 9.1 fL (7.4-10.4); Platelet Count 219 thou/uL (130-400); RBC Distribution Width 12.9 % (11.5-14.5); White Blood Cell (WBC) Count 10.9 thou/uL (4.8-10.8)
[2019-11-20 15:03] LABS: ALT (SGPT) 9 U/L (8-55); AST (SGOT) 9 U/L (5-34); Albumin 4.4 g/dL (3.4-4.8); Alkaline Phosphatase 112 U/L (40-110); Anion Gap 16 mmol/L (10-20); BUN (Urea Nitrogen) 21 mg/dL (9.8-20.1); Bilirubin, Total 0.4 mg/dL (0.2-1.2); CK (CPK) 22 U/L (29-168); Calc. Creatinine Clearance 0 mL/min (70-130); Calcium 10.3 mg/dL (7.8-10.44); Carbon Dioxide 29 mmol/L (23-31); Chloride 100 mmol/L (98-107); Estimated GFR-MDRD 54; Globulin 3.9 g/dL (2.4-3.5); Glucose 255 mg/dL (80-115); Potassium 3.8 mmol/L (3.5-5.1); Protein, Total 8.3 g/dL (6.0-8.3); Sodium 141 mmol/L (136-145)
--- NOTE | 2019-11-20 18:38 | CT ---
CTA OF THE CHEST WITH CONTRAST: 11/20/19 HISTORY: Nausea and vomiting for six days. Elevated D-dimer. Shortness of breath. TECHNIQUE: Multiple contiguous axial images were obtained in a CTA of the chest per pulmonary embolism protocol. 3D oblique MIP reformats and direct coronal reformats were performed. FINDINGS: The pulmonary arteries are well opacified without filling defects to suggest pulmonary emboli. The he art is normal in size. There is left ventricular wall hypertrophy. Calcifications are seen in the cor onary arteries and aorta. No hilar or mediastinal lymphadenopathy are seen. No focal infiltrates or pulmonary nodules are seen. No pneumothorax or pleural effusions are seen. There is a cyst emanating from the posterior aspect of the right kidney. The other visualized subdiap hragmatic structures are unremarkable. The gallbladder has been removed. Degenerative changes are see n in the spine. IMPRESSION: No evidence of pulmonary thromboembolism. POS: [facility]
--- NOTE | 2019-11-22 15:33 | EKG ---
Test Reason : Blood Pressure : / mmHG Vent. Rate : 108 BPM Atrial Rate : 108 BPM P-R Int : 168 ms QRS Dur : 084 ms QT Int : 352 ms P-R-T Axes : 066 022 083 degrees QTc Int : 471 ms Sinus tachycardia Voltage criteria for left ventricular hypertrophy Nonspecific ST and T wave abnormality Abnormal ECG Confirmed by OSEAS BRICENO, BRAEDEN ([id number]), graphics editor VINICIO PLASENCIA ([id number]) on 11/22/2019 3:33:20 PM Referred By: Confirmed By:BRAEDEN FAROOQ MD
== END 2019-11-20 21:35 | disposition home or self-care (01) ==
LOC: ERS 13:40
DX: R11.2 Nausea with vomiting, unspecified (principal); G51.0 Bell's palsy; F41.9 Anxiety disorder, unspecified; E11.40 Type 2 diabetes mellitus with diabetic neuropathy, unspecified; I10 Essential (primary) hypertension; F32.9 Major depressive disorder, single episode, unspecified; Z87.891 Personal history of nicotine dependence; Z86.73 Personal history of transient ischemic attack (TIA), and cerebral infarction without residual deficits; Z79.82 Long term (current) use of aspirin; Z79.84 Long term (current) use of oral hypoglycemic drugs; Z79.899 Other long term (current) drug therapy
CPT/HCPCS: 71045; 71275; 80053; 82550; 83880; 84484; 85025; 85379; 93005; J2405; 96361; 96374; Q9967

== ENCOUNTER 2019-11-23 17:13 | Emergency (ER) | payer MEDICARE, OTHER ==
[2019-11-23 17:55] LABS: #Basophils 0.1 thou/uL (0.0-0.2); #Eosinphils 0.2 thou/uL (0.0-0.7); #Lymphocytes 3.5 thou/uL (1.20-3.40); #Monocytes 0.7 thou/uL (0.11-0.59); #Neutrophils 5.3 thou/uL (1.40-6.50); %Basophils 0.9 % (0.0-1.0); %Eosinophils 1.8 % (0.0-10.0); %Lymphocytes 35.7 % (21.0-51.0); %Monocytes 6.9 % (0.0-10.0); %Neutrophils 54.6 % (42.0-75.0); Hemoglobin 12.6 g/dL (12.0-16.0); Mean Corpuscular HGB CONC 31.8 g/dL (32.0-36.0); Mean Corpuscular Hemoglobin 27.4 pg (27.0-31.0); Mean Corpuscular Volume 86.2 fL (78.0-98.0); Mean Platelet Volume 8.7 fL (7.4-10.4); Platelet Count 243 thou/uL (130-400); RBC Distribution Width 12.7 % (11.5-14.5); Red Blood Cell (RBC) Count 4.59 mill/uL (4.20-5.40); White Blood Cell (WBC) Count 9.8 thou/uL (4.8-10.8)
[2019-11-23 18:14] LABS: ALT (SGPT) 10 U/L (8-55); AST (SGOT) 11 U/L (5-34); Albumin 3.8 g/dL (3.4-4.8); Alkaline Phosphatase 99 U/L (40-110); Anion Gap 14 mmol/L (10-20); BUN (Urea Nitrogen) 13 mg/dL (9.8-20.1); Bilirubin, Total 0.3 mg/dL (0.2-1.2); Calc. Creatinine Clearance 0 mL/min (70-130); Calcium 9.4 mg/dL (7.8-10.44); Carbon Dioxide 29 mmol/L (23-31); Chloride 97 mmol/L (98-107); Estimated GFR-MDRD 71; Globulin 3.5 g/dL (2.4-3.5); Glucose 332 mg/dL (80-115); Lipase 87 U/L (8-78); Potassium 3.9 mmol/L (3.5-5.1); Protein, Total 7.3 g/dL (6.0-8.3); Sodium 136 mmol/L (136-145)
[2019-11-23] MEDS ORDERED: Ketorolac Tromethamine 30 MG/ML VIAL ONE (18:14)
[2019-11-23 18:52] LABS: Bilirubin Negative (Negative); Blood, Urine Negative (Negative); Clarity Clear (Clear); Glucose, Urine (Dipstick) Greater than 1000 mg/dL (Negative); Leukocyte Negative Leu/uL (Negative); Nitrite Negative (Negative); Protein, Urine (Dipstick) 20 mg/dL (Neg-Trace); Urobilinogen Normal mg/dL (Less than 2)
== END 2019-11-23 19:46 | disposition home or self-care (01) ==
LOC: ERS 17:13
DX: R10.9 Unspecified abdominal pain (principal); R11.2 Nausea with vomiting, unspecified; R19.7 Diarrhea, unspecified; E11.65 Type 2 diabetes mellitus with hyperglycemia; I10 Essential (primary) hypertension; F41.9 Anxiety disorder, unspecified; F32.9 Major depressive disorder, single episode, unspecified; F17.210 Nicotine dependence, cigarettes, uncomplicated; Z79.899 Other long term (current) drug therapy; Z86.73 Personal history of transient ischemic attack (TIA), and cerebral infarction without residual deficits; Z79.82 Long term (current) use of aspirin
CPT/HCPCS: 36415; 80053; 81003; 83690; 85025; 96372; 99284; J1885

== ENCOUNTER 2020-01-23 11:17 | Outpatient (CLI) | payer MEDICARE, OTHER ==
--- NOTE | 2020-02-20 15:14 | MMO ---
Bilateral MAMMO Bilat Screen [facility]. CLINICAL HISTORY: Patient is 69 years old and is seen for screening. The patient has no family history of breast cancer. The patient has no personal history of cancer. VIEWS: The views performed were: bilateral craniocaudal with tomosynthesis and bilateral mediolateral oblique with tomosynthesis. FILMS COMPARED: The present examination has been compared to prior imaging studies performed at [facility] on 09/22/2006, and at [facility] on 11/04/2002, 03/26/2004 and 08/22/2005. This study has been interpreted with the assistance of computer-aided detection. MAMMOGRAM FINDINGS: The breasts are heterogeneously dense, which could obscure a lesion on mammography. Benign calcifications are noted bilaterally. There are no suspicious masses, suspicious calcifications, or new areas of architectural distortion. IMPRESSION: THERE IS NO MAMMOGRAPHIC EVIDENCE OF MALIGNANCY. A ROUTINE FOLLOW-UP MAMMOGRAM IN 1 YEAR IS RECOMMENDED. THE RESULTS OF THIS EXAM WERE SENT TO THE PATIENT. ACR BI-RADS Category 2 - Benign finding MAMMOGRAPHY NOTE: 1. A negative mammogram report should not delay a biopsy if a dominant of clinically suspicious mass is present. 2. Approximately 10% to 15% of breast cancers are not detected by mammography. 3. Adenosis and dense breasts may obscure an underlying neoplasm. Reported by: STEFF GUEVARA MD Electonically Signed: [id number]
== END 2020-01-23 11:18 | disposition home or self-care (01) ==
LOC: BICMAMMO 11:17
PROVIDERS: ATTEND Family Medicine
DX: Z12.31 Encounter for screening mammogram for malignant neoplasm of breast (principal)
CPT/HCPCS: 77063; 77067

== ENCOUNTER 2020-02-25 11:04 | Emergency (ER) | payer MEDICARE, OTHER | END 2020-02-25 11:26 | disposition left against medical advice (07) | LOC: ERS 11:04 | DX: Z53.21 Procedure and treatment not carried out due to patient leaving prior to being seen by health care provider (principal) ==

== ENCOUNTER 2020-05-06 06:01 | Emergency (ER) | payer MEDICARE, OTHER ==
[2020-05-06] MEDS ORDERED: Ondansetron ODT 8 MG TAB ONE (06:10)
== END 2020-05-06 07:46 | disposition home or self-care (01) ==
LOC: ERS 06:01
DX: R11.2 Nausea with vomiting, unspecified (principal); E11.40 Type 2 diabetes mellitus with diabetic neuropathy, unspecified; I10 Essential (primary) hypertension; G51.0 Bell's palsy; F32.9 Major depressive disorder, single episode, unspecified; F41.9 Anxiety disorder, unspecified; F17.210 Nicotine dependence, cigarettes, uncomplicated; Z86.73 Personal history of transient ischemic attack (TIA), and cerebral infarction without residual deficits
CPT/HCPCS: 99284; Q0162

== ENCOUNTER 2020-05-11 12:44 | Emergency (ER) | payer MEDICARE, OTHER ==
--- NOTE | 2020-05-11 13:41 | RAD ---
XR Toe(s) Rt Min 2 View History: Pain Comparison: None. Findings: Intra-articular fracture proximal phalanx great toe at the interphalangeal joint. Fracture involves the medial 40% of the articular surface is depressed 1 to 2 mm. Impression: Mildly impacted intra-articular fracture through the medial 40% proximal phalanx head at the interphalangeal joint great toe.
== END 2020-05-11 16:30 | disposition home or self-care (01) ==
LOC: ERS 12:44
DX: S92.411A Displaced fracture of proximal phalanx of right great toe, initial encounter for closed fracture (principal); E11.40 Type 2 diabetes mellitus with diabetic neuropathy, unspecified; I10 Essential (primary) hypertension; G51.0 Bell's palsy; F41.9 Anxiety disorder, unspecified; F32.9 Major depressive disorder, single episode, unspecified; F17.210 Nicotine dependence, cigarettes, uncomplicated; M48.00 Spinal stenosis, site unspecified; Z86.73 Personal history of transient ischemic attack (TIA), and cerebral infarction without residual deficits; X58.XXXA Exposure to other specified factors, initial encounter

== ENCOUNTER 2020-07-16 13:36 | Outpatient (CLI) | payer MEDICARE, OTHER ==
--- NOTE | 2020-07-16 14:44 | BD ---
Exam: DEXA Bone Density 07/16/20 HISTORY: Postmenopausal. Lumbar Spine: BMD (g/cm2) T-SCORE L1 0.832 -1.4 L2 1.043 +0.1 L3 1.162 +0.7 L4 1.226 +1.5 L1-L4 1.084 +0.3 Left Femoral Neck: 0.679 -1.5 Total Femur: 0.903 -0.3 Impression: Normal bone mineral density of the lumbar spine. Osteopenia of the left femoral neck. Ten year fracture risk for major osteoporotic fracture is 3.9% and hip fracture 0.6%. The fracture pr obabilities are calculated for an untreated patient. POS: YVONNE
== END 2020-07-16 13:37 | disposition home or self-care (01) ==
LOC: BICMAMMO 13:36
PROVIDERS: ATTEND Family Medicine
DX: Z13.820 Encounter for screening for osteoporosis (principal); Z78.0 Asymptomatic menopausal state; M85.852 Other specified disorders of bone density and structure, left thigh
CPT/HCPCS: 77080

== ENCOUNTER 2020-10-07 11:55 | Emergency (ER) | payer MEDICARE, OTHER ==
[2020-10-07] MEDS ORDERED: Iopamidol-370 76% 500 ML 1 ML ONE (12:11)
[2020-10-07 13:07] LABS: Bacteria/HPF None Seen HPF (None Seen); Bilirubin Negative (Negative); Blood, Urine Negative (Negative); Clarity Clear (Clear); Glucose, Urine (Dipstick) Normal (Negative); Ketone, Urine Negative (Negative); Leukocyte 500 Leu/uL (Negative); Nitrite Negative (Negative); Protein, Urine (Dipstick) 10 mg/dL (Neg-Trace); RBC/HPF 0-3 HPF (0-3); Specific Gravity, Urine 1.013 (1.002-1.036); Urobilinogen Normal mg/dL (Less than 2); WBC/HPF 21-50 HPF (0-3); pH, Urine 7.5 (5.0-9.0)
[2020-10-07 13:30] LABS: #Basophils 0.1 thou/uL (0.0-0.2); #Eosinphils 0.2 thou/uL (0.0-0.7); #Lymphocytes 4.2 thou/uL (1.20-3.40); #Monocytes 0.6 thou/uL (0.11-0.59); #Neutrophils 4.3 thou/uL (1.40-6.50); %Basophils 0.6 % (0.0-1.0); %Eosinophils 2.3 % (0.0-10.0); %Monocytes 6.2 % (0.0-10.0); %Neutrophils 45.9 % (42.0-75.0); Hemoglobin 12.5 g/dL (12.0-16.0); Mean Corpuscular HGB CONC 32.3 g/dL (32.0-36.0); Mean Corpuscular Hemoglobin 27.3 pg (27.0-31.0); Mean Corpuscular Volume 84.5 fL (78.0-98.0); Mean Platelet Volume 7.6 fL (7.4-10.4); Platelet Count 260 thou/uL (130-400); RBC Distribution Width 12.8 % (11.5-14.5); Red Blood Cell (RBC) Count 4.58 mill/uL (4.20-5.40); White Blood Cell (WBC) Count 9.3 thou/uL (4.8-10.8)
[2020-10-07 13:54] LABS: ALT (SGPT) 15 U/L (8-55); AST (SGOT) 10 U/L (5-34); Albumin 3.9 g/dL (3.4-4.8); Alkaline Phosphatase 96 U/L (40-110); Anion Gap 13 mmol/L (10-20); BUN (Urea Nitrogen) 21 mg/dL (9.8-20.1); Bilirubin, Total 0.2 mg/dL (0.2-1.2); Calc. Creatinine Clearance 0 mL/min (70-130); Calcium 9.5 mg/dL (7.8-10.44); Carbon Dioxide 29 mmol/L (23-31); Chloride 102 mmol/L (98-107); Globulin 3.7 g/dL (2.4-3.5); Glucose 154 mg/dL (80-115); Lipase 24 U/L (8-78); Potassium 3.6 mmol/L (3.5-5.1); Protein, Total 7.6 g/dL (5.8-8.1); Sodium 140 mmol/L (136-145)
[2020-10-07] MEDS ORDERED: Ondansetron PF 4 MG/2 ML Vial ONE (16:09)
[2020-10-07] MEDS ORDERED: cefTRIAXone\\ROCEPHIN 1 GM VIAL ONE (16:09)
[2020-10-07] MEDS ORDERED: Ketorolac Tromethamine 30 MG/ML VIAL ONE (16:09)
== END 2020-10-07 17:50 | disposition home or self-care (01) ==
LOC: ERS 11:55
DX: N10 Acute pyelonephritis (principal); N13.2 Hydronephrosis with renal and ureteral calculous obstruction; E11.9 Type 2 diabetes mellitus without complications; I10 Essential (primary) hypertension; Z86.73 Personal history of transient ischemic attack (TIA), and cerebral infarction without residual deficits; G51.0 Bell's palsy; F17.210 Nicotine dependence, cigarettes, uncomplicated; Z79.82 Long term (current) use of aspirin; Z79.899 Other long term (current) drug therapy
CPT/HCPCS: 36415; 74177; 80053; 81003; 81015; 83690; 85025; 87086; 96365; 96375; J0696; J1885; J2405; Q9967

== ENCOUNTER 2021-06-21 13:05 | Emergency (ER) | payer MEDICARE, OTHER ==
[2021-06-21 14:42] LABS: #Basophils 0.1 thou/uL (0.0-0.2); #Eosinphils 0.2 thou/uL (0.0-0.7); #Lymphocytes 3.2 thou/uL (1.20-3.40); #Monocytes 0.7 thou/uL (0.11-0.59); #Neutrophils 5.1 thou/uL (1.40-6.50); %Basophils 0.8 % (0.0-1.0); %Eosinophils 2.1 % (0.0-10.0); %Monocytes 7.2 % (0.0-10.0); Hemoglobin 9.2 g/dL (12.0-16.0); Mean Corpuscular Hemoglobin 26.3 pg (27.0-31.0); Mean Corpuscular Volume 79.9 fL (78.0-98.0); Mean Platelet Volume 7.6 fL (7.4-10.4); Platelet Count 304 thou/uL (130-400); Red Blood Cell (RBC) Count 3.49 mill/uL (4.20-5.40); White Blood Cell (WBC) Count 9.2 thou/uL (4.8-10.8)
[2021-06-21 15:31] LABS: ALT (SGPT) 10 U/L (8-55); AST (SGOT) 26 U/L (5-34); Albumin 3.7 g/dL (3.4-4.8); Alkaline Phosphatase 67 U/L (40-110); Anion Gap 12 mmol/L (10-20); BUN (Urea Nitrogen) 23 mg/dL (9.8-20.1); Bilirubin, Total 0.2 mg/dL (0.2-1.2); Calc. Creatinine Clearance 0 mL/min (70-130); Calcium 9.7 mg/dL (7.8-10.44); Carbon Dioxide 26 mmol/L (23-31); Chloride 105 mmol/L (98-107); Globulin 3.9 g/dL (2.4-3.5); Glucose 125 mg/dL (80-115); Lipase 44 U/L (8-78); Potassium 4.4 mmol/L (3.5-5.1); Protein, Total 7.6 g/dL (5.8-8.1); Sodium 139 mmol/L (136-145)
[2021-06-21 16:20] LABS: Bacteria/HPF None Seen HPF (None Seen); Bilirubin Negative (Negative); Blood, Urine Negative (Negative); Clarity Clear (Clear); Glucose, Urine (Dipstick) Normal (Negative); Ketone, Urine Negative (Negative); Leukocyte 250 Leu/uL (Negative); Nitrite Negative (Negative); Protein, Urine (Dipstick) Negative (Neg-Trace); Specific Gravity, Urine 1.014 (1.002-1.036); Squamous Epithelial 0-3 HPF (0-3); Urobilinogen Normal mg/dL (Less than 2)
== END 2021-06-21 17:40 | disposition home or self-care (01) ==
LOC: ERS 13:05
DX: N39.0 Urinary tract infection, site not specified (principal); N28.1 Cyst of kidney, acquired; E27.8 Other specified disorders of adrenal gland; E11.40 Type 2 diabetes mellitus with diabetic neuropathy, unspecified; I10 Essential (primary) hypertension; Z79.82 Long term (current) use of aspirin; Z79.899 Other long term (current) drug therapy
CPT/HCPCS: 36415; 74176; 80053; 81003; 81015; 83605; 83690; 85025; 87086

== ENCOUNTER 2022-01-23 10:14 | Emergency (ER) | payer MEDICARE, MEDICAID ==
[2022-01-23] MEDS ORDERED: Acetaminophen/Codeine 30-300mg Tablet ONE (11:11)
[2022-01-23] MEDS ORDERED: Erythromycin Base 0.5% Oint 1 GM TUBE ONE (11:12)
== END 2022-01-23 12:25 | disposition home or self-care (01) ==
LOC: ERS 10:14
DX: H59.89 Other postprocedural complications and disorders of eye and adnexa, not elsewhere classified (principal); I10 Essential (primary) hypertension; Z86.73 Personal history of transient ischemic attack (TIA), and cerebral infarction without residual deficits; G51.0 Bell's palsy; E11.9 Type 2 diabetes mellitus without complications; Z87.891 Personal history of nicotine dependence; Z79.899 Other long term (current) drug therapy; Z79.82 Long term (current) use of aspirin
CPT/HCPCS: 99283

== ENCOUNTER 2022-02-21 21:45 | Observation (INO) | payer MEDICARE, OTHER ==
[~2022-02-21 21:45] MED LIST changes: -Iopamidol 370 76% 100 ML VIAL ONE; +Iopamidol-370 76% 500 ML 1 ML ONE
[2022-02-21] MEDS ORDERED: Ondansetron PF 4 MG/2 ML Vial ONE (22:01)
[2022-02-21] MEDS ORDERED: Morphine 4 MG/ML VIAL ONE (22:01)
[2022-02-21] MEDS ORDERED: Labetalol HCl 100 MG/20 ML VIAL ONE (22:01)
[2022-02-21 22:08] LABS: #Basophils 0.1 thou/uL (0.0-0.2); #Eosinphils 0.2 thou/uL (0.0-0.7); #Lymphocytes 3.5 thou/uL (1.20-3.40); #Monocytes 0.7 thou/uL (0.11-0.59); #Neutrophils 4.9 thou/uL (1.40-6.50); %Basophils 0.9 % (0.0-1.0); %Eosinophils 2.3 % (0.0-10.0); %Lymphocytes 36.9 % (21.0-51.0); %Monocytes 7.6 % (0.0-10.0); %Neutrophils 52.3 % (42.0-75.0); Hemoglobin 11.7 g/dL (12.0-16.0); Mean Corpuscular HGB CONC 31.3 g/dL (32.0-36.0); Mean Corpuscular Hemoglobin 26.4 pg (27.0-31.0); Mean Corpuscular Volume 84.5 fL (78.0-98.0); Mean Platelet Volume 9.1 fL (7.4-10.4); Platelet Count 217 thou/uL (130-400); RBC Distribution Width 14.4 % (11.5-14.5); Red Blood Cell (RBC) Count 4.42 mill/uL (4.20-5.40); White Blood Cell (WBC) Count 9.4 thou/uL (4.8-10.8)
[2022-02-21 22:33] LABS: ALT (SGPT) 16 U/L (8-55); AST (SGOT) 13 U/L (5-34); Albumin 3.4 g/dL (3.4-4.8); Alkaline Phosphatase 111 U/L (40-110); Anion Gap 11 mmol/L (10-20); BUN (Urea Nitrogen) 27 mg/dL (9.8-20.1); Bilirubin, Total 0.2 mg/dL (0.2-1.2); Calc. Creatinine Clearance 0 mL/min (70-130); Calcium 9.1 mg/dL (7.8-10.44); Carbon Dioxide 29 mmol/L (23-31); Chloride 101 mmol/L (98-107); Estimated GFR 44; Globulin 3.2 g/dL (2.4-3.5); Glucose 309 mg/dL (80-115); Lipase 93 U/L (8-78); Potassium 3.8 mmol/L (3.5-5.1); Protein, Total 6.6 g/dL (5.8-8.1); Sodium 137 mmol/L (136-145)
[2022-02-22 01:57] LABS: SARS-CoV-2 NAA Rapid Test Not Detected (NotDetected)
[2022-02-22] MEDS ORDERED: hydrALAZINE 20 MG/ML VIAL SLOW IVP PRN (05:47)
[2022-02-22 06:13] VITALS: TEMP 98.1
[2022-02-22] MEDS ORDERED: hydrALAZINE 20 MG/ML VIAL ONE (11:03)
[2022-02-22 13:23] VITALS: BP 154/79
== END 2022-02-22 13:20 | disposition left against medical advice (07) ==
LOC: ERS 21:45 → ERHOLD 23:43
PROVIDERS: ADMIT Internal Medicine; ATTEND Internal Medicine
DX: I16.0 Hypertensive urgency (principal); M25.512 Pain in left shoulder; M54.50 Low back pain, unspecified; E11.65 Type 2 diabetes mellitus with hyperglycemia; E11.40 Type 2 diabetes mellitus with diabetic neuropathy, unspecified; I25.10 Atherosclerotic heart disease of native coronary artery without angina pectoris; I25.84 Coronary atherosclerosis due to calcified coronary lesion; H40.9 Unspecified glaucoma; I10 Essential (primary) hypertension; I70.0 Atherosclerosis of aorta; N20.0 Calculus of kidney; I77.810 Thoracic aortic ectasia; I77.1 Stricture of artery; Z53.29 Procedure and treatment not carried out because of patient's decision for other reasons; Z86.73 Personal history of transient ischemic attack (TIA), and cerebral infarction without residual deficits; Z87.891 Personal history of nicotine dependence; Z79.82 Long term (current) use of aspirin; Z79.899 Other long term (current) drug therapy; Z88.2 Allergy status to sulfonamides; Z91.040 Latex allergy status; Z95.5 Presence of coronary angioplasty implant and graft; Z95.820 Peripheral vascular angioplasty status with implants and grafts; Z20.822 Contact with and (suspected) exposure to COVID-19
CPT/HCPCS: 71045; 71275; 74174; 80053; 83690; 84484 ×3; 85025; 93005; 96374; 96375; 99285; U0002; 36415; J0360; J2270; J2405; Q9967

== ENCOUNTER 2022-02-24 03:15 | Emergency (ER) | payer MEDICARE, OTHER ==
[2022-02-24 03:51] LABS: #Basophils 0.1 thou/uL (0.0-0.2); #Eosinphils 0.2 thou/uL (0.0-0.7); #Lymphocytes 2.8 thou/uL (1.20-3.40); #Monocytes 0.8 thou/uL (0.11-0.59); #Neutrophils 6.2 thou/uL (1.40-6.50); %Basophils 0.9 % (0.0-1.0); %Eosinophils 2.2 % (0.0-10.0); %Lymphocytes 27.6 % (21.0-51.0); %Monocytes 7.6 % (0.0-10.0); %Neutrophils 61.7 % (42.0-75.0); Hemoglobin 12.7 g/dL (12.0-16.0); Mean Corpuscular HGB CONC 33.1 g/dL (32.0-36.0); Mean Corpuscular Hemoglobin 27.5 pg (27.0-31.0); Mean Corpuscular Volume 83.2 fL (78.0-98.0); Mean Platelet Volume 9.6 fL (7.4-10.4); Platelet Count 217 thou/uL (130-400); RBC Distribution Width 14.5 % (11.5-14.5); Red Blood Cell (RBC) Count 4.62 mill/uL (4.20-5.40)
[2022-02-24 04:12] LABS: Bacteria/HPF None Seen HPF (None Seen); Bilirubin Negative (Negative); Blood, Urine 1+ (Negative); Clarity Clear (Clear); Glucose, Urine (Dipstick) Greater than 1000 mg/dL (Negative); Ketone, Urine Negative (Negative); Leukocyte Negative Leu/uL (Negative); Nitrite Negative (Negative); Protein, Urine (Dipstick) 100 mg/dL (Neg-Trace); RBC/HPF 0-3 HPF (0-3); Specific Gravity, Urine 1.016 (1.002-1.036); Urobilinogen Normal mg/dL (Less than 2)
[2022-02-24 04:15] LABS: ALT (SGPT) 21 U/L (8-55); AST (SGOT) 19 U/L (5-34); Albumin 3.7 g/dL (3.4-4.8); Alkaline Phosphatase 121 U/L (40-110); Anion Gap 14 mmol/L (10-20); BUN (Urea Nitrogen) 23 mg/dL (9.8-20.1); Bilirubin, Total 0.2 mg/dL (0.2-1.2); Calc. Creatinine Clearance 0 mL/min (70-130); Calcium 9.7 mg/dL (7.8-10.44); Carbon Dioxide 27 mmol/L (23-31); Chloride 102 mmol/L (98-107); Estimated GFR 49; Globulin 3.6 g/dL (2.4-3.5); Glucose 386 mg/dL (80-115); Lipase 52 U/L (8-78); Protein, Total 7.3 g/dL (5.8-8.1); Sodium 139 mmol/L (136-145)
== END 2022-02-24 03:58 | disposition left against medical advice (07) ==
LOC: ERS 03:15
DX: I10 Essential (primary) hypertension (principal); M54.6 Pain in thoracic spine; E11.9 Type 2 diabetes mellitus without complications; Z87.891 Personal history of nicotine dependence; Z79.899 Other long term (current) drug therapy; Z79.82 Long term (current) use of aspirin
CPT/HCPCS: 71045; 80053; 81003; 81015; 83690; 84484; 85025; 93005